=== PATIENT | male | born 1965 | race Caucasian/White ===

== ENCOUNTER → 2021-07-27 09:44 | Outpatient (BNVA) | payer BC, SELFPAY | PROVIDERS: PCP Physician Assistant Medical; Visit Provider Nurse Practitioner Family ==

== ENCOUNTER → 2022-06-18 10:40 | Outpatient (BNVA) | payer BC, MEDICARE, SELFPAY | PROVIDERS: PCP Physician Assistant Medical; Visit Provider Psychiatry & Neurology Neurology | DX: G43.119 Migraine with aura, intractable, without status migrainosus (principal) | CPT/HCPCS: 64615; J0585 ==

== ENCOUNTER → 2022-07-03 07:47 | Outpatient (BNVA) | payer BC, MEDICARE, SELFPAY | PROVIDERS: PCP Physician Assistant Medical; Visit Provider Nurse Practitioner Family | DX: Z13.89 Encounter for screening for other disorder (principal) ==

== ENCOUNTER → 2022-09-19 08:39 | Outpatient (BNVA) | payer BC, MEDICARE, SELFPAY | PROVIDERS: PCP Physician Assistant Medical; Visit Provider Psychiatry & Neurology Neurology | DX: G43.709 Chronic migraine without aura, not intractable, without status migrainosus (principal) | CPT/HCPCS: 64615; J0585 ==

== ENCOUNTER → 2022-10-22 07:53 | Outpatient (BNVA) | payer BC, MEDICARE, SELFPAY | PROVIDERS: PCP Physician Assistant Medical; Visit Provider Nurse Practitioner Family ==

== ENCOUNTER 2022-11-21 10:49 | Outpatient (RCR) | payer BC, MEDICARE, SELFPAY ==
[2022-11-21 10:55] VITALS: BP 128/82; PULSE 63; O2SAT 99
== END 2023-05-06 10:38 | disposition home or self-care (01) ==
LOC: HO.PTWFD 10:49
PROVIDERS: PCP Physician Assistant Medical; Visit Provider Nurse Practitioner Family
DX: R42 Dizziness and giddiness (principal)
CPT/HCPCS: 97161

== ENCOUNTER 2022-12-31 07:23 | Outpatient (AMB) | payer BC, MEDICARE, SELFPAY ==
--- NOTE | 2022-12-31 07:32 | MHC.OFFVIS ---
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 Required: No Allergies erenumab-aooe [From Aimovig Autoinjector] Allergy (Mild, Verified 12/31/22 07:32) Rash Medication List - Last Reconciled 12/31/22 by Melody Canas MD allopurinol 100 mg PO DAILY amitriptyline 75 mg (3 x 25 mg) PO BEDTIME 30 days cyclobenzaprine 10 mg (2 x 5 mg) PO BEDTIME PRN 30 days eletriptan (Relpax) take 1 tab at onset of headache; if no relief, may repeat 1 tab after at least 2 hrs; max = 2 tabs/24 hrs PO 30 days magnesium oxide 400 mg PO DAILY onabotulinumtoxinA (Botox) 200 units IM ONCE 12 weeks propranolol ER 120 mg PO DAILY 30 days rosuvastatin 5 mg PO BEDTIME sumatriptan succinate 100 mg PO Q2-4H PRN vitamin B comp and C no.3 (B Complex Plus Vitamin C) 1 cap PO DAILY HPI HPI Comments History of Present Illness Details ? 57y/o male comes for treatment of migraines with botox.He reports waking up with headaches He has jaw clenching, loud snoring and hypersomnia. He reports frequent arousals at night. ??? Most frequent reported adverse reactions following injection of botox for chronic migraine include neck pain (9%), headache(5%), eyelid ptosis(4%), migraine(4%), muscular weakness(4%), musculuskeletal stiffness(4%), bronchitis(3%), injection site pain (3%), musculoskeletal pain(3%), myalgia(3%), facial paresis(2%), HTN(2%) and muscle spasms(2%) were discussed in detail. ??? Botulinum toxin typeA 200units Lot no [id number] expiration [id number] was diluted with 4 cc of normal saline . ??? Muscles injected- ??? Frontalis 4 sites ? Temporalis- 8 sites ??? Occipitalis- 4 sites ??? Cervical paraspinals- 4 sites ??? Trapezius- 6 sites- 10 units each ??? 5 units each in 31 site Zygomaticus major dori 10 units each Massetters 20 units each ??? Total use- 200units ??? PFSH Medical History Snoring Family History Sister Cancer Social History Alcohol intake: current Alcohol intake frequency: a few times a week Patient Tobacco Use Status: Never used Tobacco Physical Exam Vital Signs: Last Vital Signs Pulse 59 12/31/22 07:34 BP 118/72 12/31/22 07:34 Pulse Ox 99 12/31/22 07:34 Oxygen Delivery Method Room Air 12/31/22 07:34 Const General: cooperative and no acute distress Orientation/consciousness: patient oriented x3 HEENT Head: Yes normocephalic Resp Effort & Inspection: normal respiratory effort and able to speak in complete sentences Neuro General: patient oriented x3, gait normal and CN's II-XI intact bilaterally Cognition (Neuro): normal cognition Motor exam (neuro): 5/5 motor strength present throughout Psych Appearance: grossly normal Mental Status: mental status grossly normal Speech and movement: Normal speech and movement present Affect: normal affect Attitude: cooperative Thought process: Normal thought process present Thought content: Normal thought content present Insight: Good insight present (Psych) Judgement: Good judgement present (Psych) Office Procedures Botulinum toxin Injection 84630 - Migraine Procedure code (CPT) selection complete Office Meds onabotulinumtoxinA Performing Provider: Melody Canas MD Administered by: Melody Canas MD on 12/31/22 07:57 Dose Route Admin Location Lot Number Expiration Date NDC Handle 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 Orders: Orders RT home sleep study Today F45.8 - Other somatoform disorders, G47.10 - Hypersomnia, unspecified, R06.83 - Snoring AMB Botulinum toxin Injection Today G43.709 - Chronic migraine without aura, not intractable, without status migrainosus Coding Level of Care Code Est Pt Level 1 (95935) Diagnoses Chronic migraine without aura G43.709 Bruxism F45.8 Snoring R06.83 CPT Codes Botox Injection - Botox 3: 02740 - Migraine ([id number])
[2022-12-31 07:34] VITALS: BP 118/72; PULSE 59; O2SAT 99
== END 2022-12-31 07:54 | disposition home or self-care (01) ==
PROVIDERS: Visit Provider Psychiatry & Neurology Neurology
DX: G43.709 Chronic migraine without aura, not intractable, without status migrainosus (principal)
CPT/HCPCS: 64615

== ENCOUNTER → 2022-12-31 07:23 | Outpatient (BNVA) | payer BC, MEDICARE, SELFPAY | PROVIDERS: Visit Provider Psychiatry & Neurology Neurology | DX: G43.709 Chronic migraine without aura, not intractable, without status migrainosus (principal); R06.83 Snoring; F45.8 Other somatoform disorders | CPT/HCPCS: 64615; 99211; J0585 ==

== ENCOUNTER → 2023-02-06 08:34 | Outpatient (REF) | payer BC, MEDICARE, SELFPAY | LOC: HO.SL 08:34 | PROVIDERS: PCP Physician Assistant Medical; Visit Provider Psychiatry & Neurology Neurology | DX: G47.33 Obstructive sleep apnea (adult) (pediatric) (principal); F45.8 Other somatoform disorders; R06.83 Snoring; G47.10 Hypersomnia, unspecified | CPT/HCPCS: 95806 ==

== ENCOUNTER → 2023-02-06 08:51 | Outpatient (BNV) | payer BC, MEDICARE, SELFPAY | PROVIDERS: PCP Physician Assistant Medical; Visit Provider Psychiatry & Neurology Neurology | DX: G47.33 Obstructive sleep apnea (adult) (pediatric) (principal) | CPT/HCPCS: 95806 ==

== ENCOUNTER 2023-04-24 07:48 | Outpatient (AMB) | payer BC, MEDICARE, SELFPAY ==
--- NOTE | 2023-04-24 07:52 | A.OFFVIS_ITS ---
Intake Vital Signs 04/24/23 07:53 Height 6 ft Weight 227 lb BMI 30.8 BP 118/82 Blood Pressure Location Rt brachial Position Sitting Pulse 66 Pulse Source Pulse Oximeter Pulse Oximetry (%) 98 Oxygen Delivery Method Room Air Intake Visit Reasons: 6 follow up headache-Conf Intake Note: Patient presents for 6 month follow up headaches. Allergies erenumab-aooe [From Aimovig Autoinjector] Allergy (Mild, Verified 04/24/23 07:55) Rash Medication List - Last Reconciled 04/24/23 by SARA Montalvo allopurinol 100 mg PO DAILY amitriptyline 75 mg (3 x 25 mg) PO BEDTIME 30 days cyclobenzaprine 10 mg (2 x 5 mg) PO BEDTIME PRN 30 days eletriptan (Relpax) take 1 tab at onset of headache; if no relief, may repeat 1 tab after at least 2 hrs; max = 2 tabs/24 hrs PO 30 days magnesium oxide 400 mg PO DAILY onabotulinumtoxinA (Botox) 200 units IM ONCE 12 weeks propranolol ER 120 mg PO DAILY 30 days rosuvastatin 5 mg PO BEDTIME sumatriptan succinate 100 mg PO Q2-4H PRN vitamin B comp and C no.3 (B Complex Plus Vitamin C) 1 cap PO DAILY HPI HPI Comments History of Present Illness Details 57-yr-old male presents for f/u visit. Pt denies any significant interval medical changes. Pt states he completed 3 courses of Botox- however did not find it very helpful. He did have less daytime headaches and more nocturnal headaches, however this was actually more bothersome as then he could not sleep at night. He continues to have 3 severe migraine days per week- which can last > 6 hrs. He does note some increased stress- has been having to help his parents more d/t their recent health issues. Eletriptan helps- not sure if any more effective than the other triptans. [facility] Medical History Snoring Family History Sister Cancer Social History Alcohol intake: current Alcohol intake frequency: a few times a week Patient Tobacco Use Status: Never used Tobacco Review of Systems Const All systems reviewed & are unremarkable except as noted in HPI and below Physical Exam Vital Signs: Last Vital Signs Pulse 66 04/24/23 07:53 BP 118/82 04/24/23 07:53 Pulse Ox 98 04/24/23 07:53 Oxygen Delivery Method Room Air 04/24/23 07:53 BMI result Body Mass Index 30.8 Const General: cooperative and no acute distress Orientation/consciousness: patient oriented x3 HEENT Head: Yes normocephalic Resp Effort & Inspection: normal respiratory effort and able to speak in complete sentences Neuro General: patient oriented x3, gait normal and CN's II-XI intact bilaterally Cognition (Neuro): normal cognition Motor exam (neuro): 5/5 motor strength present throughout Psych Appearance: grossly normal Mental Status: mental status grossly normal Speech and movement: Normal speech and movement present Affect: normal affect Attitude: cooperative Thought process: Normal thought process present Thought content: Normal thought content present Insight: Good insight present (Psych) Judgement: Good judgement present (Psych) Assessment & Plan Assessment & Plan (1) Migraine with aura, intractable, without status migrainosus: Code(s): G43.119 - Migraine with aura, intractable, without status migrainosus (2) Bruxism: Code(s): F45.8 - Other somatoform disorders (3) Chronic migraine without aura: Code(s): G43.709 - Chronic migraine without aura, not intractable, without status migrainosus Plan For migraine prevention tx: Hold Botox- pt did not see effect. Start Qulipta 30mg qhs. Continue amitriptyline 75 mg q.h.s. Continue propranolol LA 120 mg daily. Continue magnesium and riboflavin. Trial Nerivio neuromodulation device qod. Previous migraine prevention trials: topiramate, caused significant metallic oral sensation; Aimovig caused diffuse rash. Botox- ineffective after 3 tx's. For acute migraine tx: Continue sumatriptan 100 mg by mouth as needed. May alternate w/ Eletriptan 40mg prn- in hopes it is more effective than Sumatriptan. Continue Cyclobenzaprine 5-10mg qhs prn headache/bruxism. May use Benadryl 25-50mg prn for rescue/sleep Trial Nerivio neuromodulation device qd rpn. Previous migraine acute tx trials: Sumatriptan inj- lost efficacy. Future considerations- DHE/Trudhessa, metoclopramide- for rescue. f/u in 4 months or sooner prn. Medications: New atogepant (Qulipta) 30 mg PO DAILY 30 days 30 tabs 6RF Coding Level of Care Code Est Pt Level 4 (03783) Diagnoses Migraine with aura, intractable, without status migrainosus G43.119 Bruxism F45.8 Chronic migraine without aura G43.709
[2023-04-24 07:53] VITALS: BP 118/82; PULSE 66; O2SAT 98; BMI 30.8
== END 2023-04-24 08:40 | disposition home or self-care (01) ==
PROVIDERS: PCP Physician Assistant Medical; Visit Provider Nurse Practitioner Family
DX: G43.119 Migraine with aura, intractable, without status migrainosus (principal); F45.8 Other somatoform disorders; G43.709 Chronic migraine without aura, not intractable, without status migrainosus
CPT/HCPCS: 99214

== ENCOUNTER → 2023-04-24 07:48 | Outpatient (BNVA) | payer BC, MEDICARE, SELFPAY | PROVIDERS: PCP Physician Assistant Medical; Visit Provider Nurse Practitioner Family | DX: G43.709 Chronic migraine without aura, not intractable, without status migrainosus (principal) ==

== ENCOUNTER 2023-08-20 07:53 | Outpatient (AMB) | payer BC, MEDICARE, SELFPAY ==
[2023-08-20 07:58] VITALS: BP 114/74; PULSE 72; O2SAT 98; BMI 30.8
--- NOTE | 2023-08-20 07:58 | A.OFFVIS_ITS ---
Intake Vital Signs 08/20/23 07:58 Height 6 ft Weight 227 lb BMI 30.8 BP 114/74 Blood Pressure Location Rt brachial Position Sitting Pulse 72 Pulse Source Pulse Oximeter Pulse Oximetry (%) 98 Oxygen Delivery Method Room Air Intake Visit Reasons: 4 mnts f/u appt-CONF Intake Note: Patiient presents for 4 month follow up. Allergies erenumab-aooe [From Aimovig Autoinjector] Allergy (Mild, Verified 08/20/23 08:00) Rash Medication List - Last Reconciled 08/20/23 by SARA Montalvo allopurinol 100 mg PO DAILY amitriptyline 75 mg (3 x 25 mg) PO BEDTIME 30 days atogepant (Qulipta) 30 mg PO DAILY 30 days cyclobenzaprine 10 mg (2 x 5 mg) PO BEDTIME PRN 30 days eletriptan (Relpax) take 1 tab at onset of headache; if no relief, may repeat 1 tab after at least 2 hrs; max = 2 tabs/24 hrs PO 30 days magnesium oxide 400 mg PO DAILY onabotulinumtoxinA (Botox) 200 units IM ONCE 12 weeks propranolol ER 120 mg PO DAILY 30 days rosuvastatin 5 mg PO BEDTIME sumatriptan succinate 100 mg PO Q2-4H PRN vitamin B comp and C no.3 (B Complex Plus Vitamin C) 1 cap PO DAILY HPI HPI Comments History of Present Illness Details 58-yr-old male presents for f/u visit. Pt denies any significant interval medical changes. Pt did not tolerate Atogepant 30mg qd- caused significant GI s/s- even with taking in am or at bedtime. He did hold Amitriptyline while taking it. He finds the Eletriptan to be helping better. He is still having 3-4 migraine attacks per week. The Eletriptan does help them to end sooner- now needs 1-1.5hrs in a dark quiet. He wonders if there is something he can do to prevent migraine induced by airtravel. [facility] Medical History (Updated 08/20/23 @ 09:22 by SARA Montalvo) Migraine with aura, intractable, without status migrainosus Snoring Family History Sister Cancer Social History Alcohol intake: current Alcohol intake frequency: a few times a week Patient Tobacco Use Status: Never used Tobacco Physical Exam Vital Signs: Last Vital Signs Pulse 72 08/20/23 07:58 BP 114/74 08/20/23 07:58 Pulse Ox 98 08/20/23 07:58 Oxygen Delivery Method Room Air 08/20/23 07:58 BMI result Body Mass Index 30.8 Const General: cooperative and no acute distress Orientation/consciousness: patient oriented x3 Resp Effort & Inspection: normal respiratory effort and able to speak in complete sentences Neuro General: patient oriented x3 Cranial nerves: Yes CN's II-XII intact bilaterally Cognition (Neuro): normal cognition Psych Appearance: grossly normal Mental Status: mental status grossly normal Speech and movement: Normal speech and movement present Affect: normal affect Attitude: cooperative Assessment & Plan Assessment & Plan (1) Chronic migraine without aura: Code(s): G43.709 - Chronic migraine without aura, not intractable, without status migrainosus (2) Migraine with aura: Code(s): G43.109 - Migraine with aura, not intractable, without status migrainosus (3) Bruxism: Code(s): F45.8 - Other somatoform disorders Plan For migraine prevention tx: Pt stopped Qulipta 30mg qhs- caused significant GI s/s. Increase amitriptyline from 75 to 100 mg q.h.s. Continue propranolol LA 120 mg daily. Continue magnesium and riboflavin. Trial Nerivio neuromodulation device qod. Previous migraine prevention trials: topiramate, caused significant metallic oral sensation; Aimovig caused diffuse rash. Botox- ineffective after 3 tx's. Qulipta 30mg qhs- caused significant GI s/s. For migraine induced by air travel: Trial Acetazolamide 125mg bid starting 1 day before flight and continuing x's 1- 2 days after flight. For acute migraine tx: Continue sumatriptan 100 mg by mouth as needed. Continue Eletriptan 40mg prn.. Continue Cyclobenzaprine 5-10mg qhs prn headache/bruxism. May use Benadryl 25-50mg prn for rescue/sleep Trial Nerivio neuromodulation device qd rpn. Previous migraine acute tx trials: Sumatriptan inj- lost efficacy. Future considerations- DHE/Trudhessa, metoclopramide- for rescue. f/u in 4 months or sooner prn. Medications: New acetazolamide start 24 hrs prior to flying 125 mg PO BID 14 days PRN 28 tabs 0RF altitude sickness amitriptyline 100 mg PO BEDTIME 30 days 30 tabs 3RF Refilled eletriptan (Relpax) take 1 tab at onset of headache; if no relief, may repeat 1 tab after at least 2 hrs; max = 2 tabs/24 hrs PO 30 days 14 tabs 6RF Discontinued amitriptyline Discontinued Reason: Doctor's Order 75 mg (3 x 25 mg) PO BEDTIME 30 days 90 tabs 6RF atogepant (Qulipta) Discontinued Reason: Doctor's Order 30 mg PO DAILY 30 days 30 tabs 6RF Coding Level of Care Code Est Pt Level 4 (58843) Diagnoses Chronic migraine without aura G43.709 Migraine with aura G43.109 Bruxism F45.8
== END 2023-08-20 08:52 | disposition home or self-care (01) ==
PROVIDERS: PCP Physician Assistant Medical; Visit Provider Nurse Practitioner Family
DX: G43.709 Chronic migraine without aura, not intractable, without status migrainosus (principal); G43.109 Migraine with aura, not intractable, without status migrainosus; F45.8 Other somatoform disorders
CPT/HCPCS: 99214

== ENCOUNTER → 2023-08-20 07:53 | Outpatient (BNVA) | payer BC, MEDICARE, SELFPAY | PROVIDERS: PCP Physician Assistant Medical; Visit Provider Nurse Practitioner Family ==

== ENCOUNTER 2024-01-30 07:53 | Outpatient (AMB) | payer BC, MEDICARE, SELFPAY ==
[2024-01-30 07:57] VITALS: BP 122/78; PULSE 68; O2SAT 100; BMI 30.2
--- NOTE | 2024-01-30 07:57 | MHC.OFFVIS ---
Vital Signs 01/30/24 07:57 Height 6 ft Weight 223 lb BMI 30.2 BP 122/78 Blood Pressure Location Rt brachial Pulse 68 Pulse Source Pulse Oximeter Pulse Oximetry (%) 100 Oxygen Delivery Method Room Air Intake Visit Reasons: Follow up Intake Note: Patient presents for follow up Allergies erenumab-aooe [From Aimovig Autoinjector] Allergy (Mild, Verified 01/30/24 08:05) Rash Medication List - Last Reconciled 01/30/24 by SARA Montalvo acetazolamide 125 mg PO BID PRN 14 days allopurinol 100 mg PO DAILY amitriptyline 100 mg PO BEDTIME 30 days cyclobenzaprine 10 mg (2 x 5 mg) PO BEDTIME PRN 30 days eletriptan (Relpax) take 1 tab at onset of headache; if no relief, may repeat 1 tab after at least 2 hrs; max = 2 tabs/24 hrs PO 30 days magnesium oxide 400 mg PO DAILY onabotulinumtoxinA (Botox) 200 units IM ONCE 12 weeks propranolol ER 120 mg PO DAILY 30 days rosuvastatin 5 mg PO BEDTIME sumatriptan succinate 100 mg PO Q2-4H PRN vitamin B comp and C no.3 (B Complex Plus Vitamin C) 1 cap PO DAILY HPI Comments Details: 58-yr-old male presents for f/u visit. Pt denies any significant interval medical changes. Pt reports he is better able to catch a migraine, now recognizes that he has a scratchy inner skull sensation. He is still having 3 migraine days per week. Usually starts taking Ibuprofen at onset, as he can run out of his eletriptan before the end of the month as he is only receiving 9 tabs per month. He is still photophobic. The acetazolamide was helpful to prevent post-flight migraine attack. [facility] Medical History (Updated 01/30/24 @ 13:39 by SARA Montalvo) Migraine with aura, intractable, without status migrainosus Snoring Family History Sister Cancer Social History Alcohol intake: current Alcohol intake frequency: a few times a week Patient Tobacco Use Status: Never used Tobacco Physical Exam Vital Signs: Last Vital Signs Pulse 68 01/30/24 07:57 BP 122/78 01/30/24 07:57 Pulse Ox 100 01/30/24 07:57 Oxygen Delivery Method Room Air 01/30/24 07:57 BMI result Body Mass Index 30.2 Const General: cooperative and no acute distress Orientation/consciousness: patient oriented x3 Resp Effort & Inspection: normal respiratory effort and able to speak in complete sentences Neuro General: patient oriented x3 Cranial nerves: Yes CN's II-XII intact bilaterally Cognition (Neuro): normal cognition Psych Appearance: grossly normal Mental Status: mental status grossly normal Speech and movement: Normal speech and movement present Affect: normal affect Attitude: cooperative Assessment & Plan Assessment & Plan (1) Migraine with aura: Code(s): G43.109 - Migraine with aura, not intractable, without status migrainosus Category: Medical (2) Photophobia: Code(s): H53.149 - Visual discomfort, unspecified Category: Medical Plan For migraine prevention tx: Continue amitriptyline 100 mg q.h.s. Continue propranolol LA 120 mg daily. Continue magnesium and riboflavin. Previous migraine prevention trials: topiramate, caused significant metallic oral sensation; Aimovig caused diffuse rash. Botox- ineffective after 3 tx's. Qulipta 30mg qhs- caused significant GI s/s. ? For migraine induced by air travel: Acetazolamide 125mg bid starting 1 day before flight and continuing x's 1-2 days after flight. ? For acute migraine tx: Continue sumatriptan 100 mg by mouth as needed. Continue Eletriptan 40mg prn. will send additional order to [facility] pharmacy to supplement 9 tabs per month to 14 tabs per month. Continue Cyclobenzaprine 5-10mg qhs prn headache/bruxism. May use Benadryl 25-50mg prn for rescue/sleep Previous migraine acute tx trials: Sumatriptan inj- lost efficacy. Future considerations- DHE/Trudhessa, metoclopramide- for rescue. Information shared on non-pharmacological migraine tx's, such as migraine specifc blue light filtering glasses. ? f/u in 6 months or sooner prn. Medications: Refilled eletriptan (Relpax) take 1 tab at onset of headache; if no relief, may repeat 1 tab after at least 2 hrs; max = 2 tabs/24 hrs PO 30 days 30 tabs 6RF G43.109 - Migraine with aura, not intractable, without status migrainosus Coding Level of Care Code Est Pt Level 4 (35620) Diagnoses Migraine with aura G43.109 Photophobia H53.149
== END 2024-01-30 09:04 | disposition home or self-care (01) ==
PROVIDERS: PCP Physician Assistant Medical; Visit Provider Nurse Practitioner Family
DX: G43.109 Migraine with aura, not intractable, without status migrainosus (principal); H53.149 Visual discomfort, unspecified
CPT/HCPCS: 99214

== ENCOUNTER → 2024-01-30 07:53 | Outpatient (BNVA) | payer BC, MEDICARE, SELFPAY | PROVIDERS: PCP Physician Assistant Medical; Visit Provider Nurse Practitioner Family ==

== ENCOUNTER 2024-08-12 08:51 | Outpatient (AMB) | payer BC, MEDICARE, SELFPAY ==
--- NOTE | 2024-08-12 08:59 | MHC.OFFVIS ---
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: No Accompanied by: Self / Same As Patient Allergies erenumab-aooe [From Aimovig Autoinjector] Allergy (Mild, Verified 08/12/24 09:07) Rash Medication List - Last Reconciled 08/12/24 by SARA Montalvo acetazolamide 125 mg PO BID PRN 14 days allopurinol 100 mg PO DAILY amitriptyline 100 mg PO BEDTIME 30 days cyclobenzaprine 10 mg (2 x 5 mg) PO BEDTIME PRN 30 days eletriptan (Relpax) take 1 tab at onset of headache; if no relief, may repeat 1 tab after at least 2 hrs; max = 2 tabs/24 hrs PO 30 days magnesium oxide 400 mg PO DAILY onabotulinumtoxinA (Botox) 200 units IM ONCE 12 weeks propranolol ER 120 mg PO DAILY 30 days rosuvastatin 5 mg PO BEDTIME sumatriptan succinate 100 mg PO Q2-4H PRN vitamin B comp and C no.3 (B Complex Plus Vitamin C) 1 cap PO DAILY HPI Comments Details: 59-yr-old male presents for f/u visit for chronic migraine. Pt denies any significant interval medical changes. Last month had a bout of vertigo- room spinning to the left. Used meclizine last month for vertigo, which helped. Previously did vestibular PT. Pt reports he is better able to catch a migraine, now recognizes that he has a scratchy inner skull sensation. He is still having 3 migraine days per week- none lasting longer than 3 hours. He is now using Eletriptan at onset of migraine, as he is receiving sufficient supply through [facility] pharmacy. Also using the HEAeyes which is very helpful. He finds that applying ice to deep inner buccal region is also helpful. He is still photophobic. The acetazolamide is helpful to prevent post-flight migraine attack. [facility] Medical History (Updated 01/30/24 @ 13:39 by SARA Montalvo) Migraine with aura, intractable, without status migrainosus Snoring Family History Sister Cancer Social History Alcohol intake: current Alcohol intake frequency: a few times a week Patient Tobacco Use Status: Never used Tobacco Physical Exam Vital Signs: Last Vital Signs Pulse 56 08/12/24 09:05 BP 122/78 08/12/24 09:05 Pulse Ox 97 08/12/24 09:05 Oxygen Delivery Method Room Air 08/12/24 09:05 BMI result Body Mass Index 29.8 Const General: cooperative and no acute distress Orientation/consciousness: patient oriented x3 Resp Effort & Inspection: normal respiratory effort and able to speak in complete sentences Neuro General: patient oriented x3 Cranial nerves: Yes CN's II-XII intact bilaterally Cognition (Neuro): normal cognition Psych Appearance: grossly normal Mental Status: mental status grossly normal Speech and movement: Normal speech and movement present Affect: normal affect Attitude: cooperative Assessment & Plan Assessment & Plan (1) Migraine with aura: Code(s): G43.109 - Migraine with aura, not intractable, without status migrainosus Category: Medical (2) Photophobia: Code(s): H53.149 - Visual discomfort, unspecified Category: Medical (3) Vertigo: Code(s): R42 - Dizziness and giddiness Category: Medical Plan For migraine prevention tx: Continue amitriptyline 100 mg q.h.s. Continue propranolol LA 120 mg daily. Continue magnesium and riboflavin. Previous migraine prevention trials: topiramate, caused significant metallic oral sensation; Aimovig caused diffuse rash. Botox- ineffective after 3 tx's. Qulipta 30mg qhs- caused significant GI s/s. ? For migraine induced by air travel: Acetazolamide 125mg bid starting 1 day before flight and continuing x's 1-2 days after flight. ? For acute migraine tx: Continue Eletriptan 40mg prn. continue to send additional orders to [facility] pharmacy to supplement 9 tabs per month (allowed by his insurance) to 14 tabs per month. Hold Cyclobenzaprine 5-10mg qhs prn headache/bruxism- no longer using. May use Benadryl 25-50mg prn for rescue/sleep May continue HEAeye device prn. Previous migraine acute tx trials: Sumatriptan inj- lost efficacy. Sumatriptan 100mg- not as effective as eletriptan. Future considerations- DHE/Trudhessa, metoclopramide- for rescue. For vertigo: Meclizine 12.5mg prn. If worsens, will refer back to vestibular PT. ? f/u in 6 months or sooner prn. Medications: New meclizine 12.5 mg PO BID-TID PRN Refilled amitriptyline 100 mg PO BEDTIME 30 tabs 6RF 30 days propranolol ER 120 mg PO DAILY 30 caps 6RF 30 days eletriptan (Relpax) take 1 tab at onset of headache; if no relief, may repeat 1 tab after at least 2 hrs; max = 2 tabs/24 hrs PO 30 tabs 6RF 30 days G43.109 - Migraine with aura, not intractable, without status migrainosus acetazolamide start 24 hrs prior to flying 125 mg PO BID PRN 28 tabs 0RF altitude sickness 14 days Discontinued sumatriptan succinate Discontinued Reason: Doctor's Order 100 mg PO Q2-4H PRN 30 tabs 3RF migraine headache cyclobenzaprine Discontinued Reason: Doctor's Order 10 mg (2 x 5 mg) PO BEDTIME 30 days PRN 60 tabs 2RF muscle spasm Coding Level of Care Code Est Pt Level 4 (93934) Diagnoses Migraine with aura G43.109 Photophobia H53.149 Vertigo R42
[2024-08-12 09:05] VITALS: BP 122/78; PULSE 56; O2SAT 97; BMI 29.8
--- OUTSIDE RECORDS SUMMARY | 2024-08-12 09:45 | XMS_ITS | Data Portability ---
Author Organization 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 Plan of Treatment Reminders Order Date Submit Date Provider Last Modified By Organization Details Last Modified Time Details Appointments None record ed. Lab uric acid, serum or plasma 2023 DIANNE [facility], [address], [address], [place], [id number], 15:43:53 CMP, serum or plasma 2023 DIANNE [facility], [address], [address], [place], [address], 15:43:49 CBC w/ auto diff 2023 DIANNE [facility] (Centralized Electronic Ordering - All Locations), Patient Can Go To The Location Of Their Choice, [id number] 15:43:48 lipid panel, serum 2023 DIANNE [facility] (Centralized Electronic Ordering - All Locations), Patient Can Go To The Location Of Their Choice, [id number] 15:43:50 HbA1c (hemog lobin A1c), blood 2023 DIANNE [facility], [address], [address], [place], [address], 4 15:43:51 PSA, serum or plasma - Screen ing 2023 024 DIANNE [facility], [address], [address], [place], [address], 4 15:43:50 uric acid, serum or plasma 2022 023 DIANNE [facility], [address], [address], [place], [address], 3 14:08:00 gamma- glutam yl transf erase (ggt), serum 2022 023 DIANNE [facility], [address], [address], [place], [address], 3 14:07:58 CMP, serum or plasma 2022 023 DIANNE [facility], [address], [address], [place], [address], 3 14:07:56 HbA1c (hemog lobin A1c), blood 2022 023 DIANNE [facility], [address], [address], [place], [address], 3 14:47:22 PSA, serum or plasma - Screen ing 2022 023 DIANNE [facility], [address], [address], [place], [address], 3 14:36:04 uric acid, serum or plasma 2022 023 DIANNE [facility], [address], [address], [place], [address], 3 17:35:56 hepati c functi on panel, serum 2022 023 DIANNE [facility], [address], [address], [place], [address], 17:35:53 gamma- glutam yl transf erase (ggt), serum 2022 023 DIANNE [facility], [address], [address], [place], [address], 17:35:52 uric acid, serum or plasma 2021 022 DIANNE [facility], [address], [address], [place], [address], 20:23:32 lipid panel, serum 2021 022 DIANNE [facility], [address], [address], [place], [address], 20:23:31 CMP, serum or plasma 2021 022 DIAN[facility], [address], [address], [place], [address], 2 20:23:30 CBC w/ auto diff 2021 022 DIAN[facility], [address], [address], [place], [address], 2 18:27:19 HbA1c (hemog lobin A1c), blood 2021 022 DIANNE [facility], [address], [address], [place], [address], 2 21:05:01 vitami n D, 25-hyd maria g, total, serum 2021 022 DIANNE [facility], [address], [address], [place], [address], 2 20:43:50 PSA, serum or plasma - Screen ing 2021 022 DIANNE [facility], [address], [address], [place], [address], 2 20:43:49 uric acid, serum or plasma 2020 021 [email or web address] [facility], [address], [address], [place], [address], 1 15:30:21 BMP, serum or plasma 2020 021 [email or web address] [facility], [address], [address], [place], [address], 1 16:40:12 Referral nutrit ionist /shawn gillespie referr al 2023 024 [email or web address] Not available 4 14:57:54 nutrit ionist /shawn gillespie referr al 2022 023 chinedu Not available 3 18:19:51 Procedures None record ed. Surgeries None record ed. Imaging None record ed. Medication Orders indome thacin 50 mg capsul e 2020 021 chinedu [id number], [address] [place], [address], 2 10:22:37 Patient Targets Encounter Date Encounter Id Patient Goals Patient Target Last Modified By Organization Details Last Modified Time 03/07/2022 [id number] long-term goal of Excess Body Weight Loss % 5 Not available Not available Not available Ongoing of LDL Direct yearly Not available Not available Not available Ongoing of LDL Direct <100 Not available Not available Not available Pt agrees to follow low fat diet, avoid saturated fats , decrease carbohydrate intake to 45 - 50 gm per meal , pt agrees to develop a regular pattern of exercise such as walking 30 minutes a day 3 times a week, Pt will keep a record of exercise and activity level Patient preferences and goals incorporated in plan and updated/modified as needed to reflect progress toward goal.Pt advised and agrees to work on self-monitoring behaviors; begin an appropriate diet for weight loss (such as a low carbohydrate diet), to do moderate exercise (such as walking) for approximately 150 minutes per week; and to identify desirable and timely rewards that will reinforce achievement of specific weight loss goals. 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 pmadden Not available 03/10/2023 09:28:19 03/15/2024 [id number] long-term goal of Excess Body Weight Loss % 5 Not available Not available Not available Ongoing of LDL Direct <100 Not available Not available Not available Ongoing of LDL Direct yearly Not available Not available Not available Pt agrees to follow low fat diet, avoid saturated fats , decrease carbohydrate intake to 45 - 50 gm per meal , pt agrees to develop a regular pattern of exercise such as walking 30 minutes a day 3 times a week, Pt will keep a record of exercise and activity level Patient preferences and goals incorporated in plan and updated/modified as needed to reflect progress toward goal.Pt advised and agrees to work on self-monitoring behaviors; begin an appropriate diet for weight loss (such as a low carbohydrate diet), to do moderate exercise (such as walking) for approximately 150 minutes per week; and to identify desirable and timely rewards that will reinforce achievement of specific weight loss goals. pmadden Not available 03/15/2024 10:36:34 Patient Instructions Encounter Date Encounter Id Patient Instructions Last Modified By Organization Details Last Modified Time 10/04/2020 [id number] purine-restricte d diet: care instructions Not available 10/04/2020 16:10:40 gout: care instructions Not available 10/04/2020 16:10:40 03/07/2022 [id number] A healthy lifestyle: care instructions pmadden Not available 03/07/2022 11:36:49 Well Visit 50 to 65: Care Instructions pmadden Not available 03/07/2022 11:36:49 Prostate Cancer Screening pmadden Not available 03/07/2022 11:36:49 starting a weigh t loss plan: care instructions pmadden Not available 03/07/2022 11:36:49 Medications (OTC , herbal therapies, supplements) reviewed and reconciled with patient and or caregiver, including potential side effects, drug interactions, instructions, and the consequences of not taking medication. Reviewed potential barriers to medication adherence, such as side effects from medication or cost of medication. pmadden Not available 03/07/2022 11:35:21 09/16/2022 [id number] Medications (OTC , herbal therapies, supplements) reviewed and reconciled with patient and or caregiver, including potential side effects, drug interactions, instructions, and the consequences of not taking medication. Reviewed potential barriers to medication adherence, such as side effects from medication or cost of medication. pmadden Not available 09/16/2022 13:56:12 03/10/2023 [id number] A healthy lifestyle: care instructions pmadden Not available 03/10/2023 09:29:36 Well Visit 50 to 65: Care Instructions pmadden Not available 03/10/2023 09:29:36 Prostate Cancer Screening pmadden Not available 03/10/2023 09:29:36 starting a weigh t loss plan: care instructions pmadden Not available 03/10/2023 09:29:36 Medications (OTC , herbal therapies, supplements) reviewed and reconciled with patient and or caregiver, including potential side effects, drug interactions, instructions, and the consequences of not taking medication. Reviewed potential barriers to medication adherence, such as side effects from medication or cost of medication. pmadden Not available 03/10/2023 09:13:53 03/15/2024 [id number] A healthy lifestyle: care instructions pmadden Not available 03/15/2024 10:37:04 Well Visit 50 to 65: Care Instructions pmadden Not available 03/15/2024 10:37:04 Prostate Cancer Screening pmadden Not available 03/15/2024 10:37:05 starting a weigh t loss plan: care instructions pmadden Not available 03/15/2024 10:37:04 Medications (OTC , herbal therapies, supplements) reviewed and reconciled with patient and or caregiver, including potential side effects, drug interactions, instructions, and the consequences of not taking medication. Reviewed potential barriers to medication adherence, such as side effects from medication or cost of medication. 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 Refer ral for Body mass index 30+ - obesity Referring Physician: Rachna Olivera, Internal Medicine, Encounter Date: 03/15/2024 Results Created Date Observation Date Name Description Value Unit Range Abnormal Flag Note LastModifiedBy Organization Detail LastModifiedTime 03/07/2003/07/2022 COMPL ETE BLOOD COUNT WBC 7.3 K/mm3 (4.0-1 1.0) Not Available [facility] (Centralized Electronic Ordering - All Locations) Patient Can Go To The Location Of Their Choice, 03/07/2022 18:27:19 03/07/2003/07/2022 COMPL ETE BLOOD COUNT RBC 5.06 M/mm3 (4.70- 6.10) Not Available [facility] (Centralized Electronic Ordering - All Locations) Patient Can Go To The Location Of Their Choice, 03/07/2022 18:27:19 03/07/2003/07/2022 COMPL ETE BLOOD COUNT HGB 15.1 gm/dL (13.7- 17.1) Not Available [facility] (Centralized Electronic Ordering - All Locations) Patient Can Go To The Location Of Their Choice, 03/07/2022 18:27:19 03/07/2003/07/2022 COMPL ETE BLOOD COUNT HCT 45.6 % (40.5- 50.0) Not Available [facility] (Centralized Electronic Ordering - All Locations) Patient Can Go To The Location Of Their Choice, 03/07/2022 18:27:19 03/07/2003/07/2022 COMPL ETE BLOOD COUNT MCV 90.1 fL (80.0- 94.0) Not Available [facility] (Centralized Electronic Ordering - All Locations) Patient Can Go To The Location Of Their Choice, 03/07/2022 18:27:19 03/07/2003/07/2022 COMPL ETE BLOOD COUNT MCH 29.8 pg (27.0- 34.0) Not Available [facility] (Centralized Electronic Ordering - All Locations) Patient Can Go To The Location Of Their Choice, 03/07/2022 18:27:19 03/07/2003/07/2022 COMPL ETE BLOOD COUNT MCHC 33.1 g/dL (33.0- 37.0) Not Available [facility] (Centralized Electronic Ordering - All Locations) Patient Can Go To The Location Of Their Choice, 03/07/2022 18:27:19 03/07/2003/07/2022 COMPL ETE BLOOD COUNT plt 210 K/mm3 (150-4 60) Not Available [facility] (Centralized Electronic Ordering - All Locations) Patient Can Go To The Location Of Their Choice, 03/07/2022 18:27:19 03/07/2003/07/2022 COMPL ETE BLOOD COUNT RDW-SD 43.8 fL (<47.0 ) Not Available [facility] (Centralized Electronic Ordering - All Locations) Patient Can Go To The Location Of Their Choice, 03/07/2022 18:27:19 03/07/2003/07/2022 COMPL ETE BLOOD COUNT MPV 10.7 fL (9.4-1 2.4) Not Available [facility] (Centralized Electronic Ordering - All Locations) Patient Can Go To The Location Of Their Choice, 03/07/2022 18:27:19 03/07/2003/07/2022 COMPL ETE BLOOD COUNT automated NRBC 0.0 #/100 _WBC' s Not Available [facility] (Centralized Electronic Ordering - All Locations) Patient Can Go To The Location Of Their Choice, 03/07/2022 18:27:19 03/07/2003/07/2022 COMPL ETE BLOOD COUNT abs. NRBC 0.0 K/mm3 Not Available [facility] (Centralized Electronic Ordering - All Locations) Patient Can Go To The Location Of Their Choice, 03/07/2022 18:27:19 03/07/2003/07/2022 COMPR EHENS LAURIE METAB OLIC PANL glucose 107 mg/dL (70-99 ) high Not Available [facility] (Centralized Electronic Ordering - All Locations) Patient Can Go To The Location Of Their Choice, 03/07/2022 20:23:30 03/07/2003/07/2022 COMPR EHENS LAURIE METAB OLIC PANL BUN 13 mg/dL (6-20) Not Available [facility] (Centralized Electronic Ordering - All Locations) Patient Can Go To The Location Of Their Choice, 03/07/2022 20:23:30 03/07/2003/07/2022 COMPR EHENS LAURIE METAB OLIC PANL creatinine 1.1 mg/dL (0.7-1 .2) Not Available [facility] (Centralized Electronic Ordering - All Locations) Patient Can Go To The Location Of Their Choice, 03/07/2022 20:23:30 03/07/2003/07/2022 COMPR EHENS LAURIE METAB OLIC PANL sodium 139 mmol/ L (133-1 45) Not Available [facility] (Centralized Electronic Ordering - All Locations) Patient Can Go To The Location Of Their Choice, 03/07/2022 20:23:30 03/07/2003/07/2022 COMPR EHENS LAURIE METAB OLIC PANL potassium 4.6 mmol/ L (3.6-5 .2) Not Available [facility] (Centralized Electronic Ordering - All Locations) Patient Can Go To The Location Of Their Choice, 03/07/2022 20:23:30 03/07/2003/07/2022 COMPR EHENS LAURIE METAB OLIC PANL chloride 100 mmol/ L (98-10 7) Not Available [facility] (Centralized Electronic Ordering - All Locations) Patient Can Go To The Location Of Their Choice, 03/07/2022 20:23:30 03/07/2003/07/2022 COMPR EHENS LAURIE METAB OLIC PANL bicarbonate 28 mmol/ L (22-29 ) Not Available [facility] (Centralized Electronic Ordering - All Locations) Patient Can Go To The Location Of Their Choice, 03/07/2022 20:23:30 03/07/2003/07/2022 COMPR EHENS LAURIE METAB OLIC PANL anion gap 11 (4-17) Not Available [facility] (Centralized Electronic Ordering - All Locations) Patient Can Go To The Location Of Their Choice, 03/07/2022 20:23:30 03/07/2003/07/2022 COMPR EHENS LAURIE METAB OLIC PANL albumin 5.0 gm/dL (3.4-4 .8) high Not Available [facility] (Centralized Electronic Ordering - All Locations) Patient Can Go To The Location Of Their Choice, 03/07/2022 20:23:30 03/07/2003/07/2022 COMPR EHENS LAURIE METAB OLIC PANL calcium 9.9 mg/dL (8.6-1 0.5) Not Available [facility] (Centralized Electronic Ordering - All Locations) Patient Can Go To The Location Of Their Choice, 03/07/2022 20:23:30 03/07/2003/07/2022 COMPR EHENS LAURIE METAB OLIC PANL bilirubin,to haroldo 2.8 mg/dL (0-1.2 ) high Not Available [facility] (Centralized Electronic Ordering - All Locations) Patient Can Go To The Location Of Their Choice, 03/07/2022 20:23:30 03/07/20 22 03/07/2022 COMPR EHENS LAURIE METAB OLIC PANL total protein 7.3 gm/dL (6.2-8 .2) Not Available [facility] (Centralized Electronic Ordering - All Locations) Patient Can Go To The Location Of Their Choice, 03/07/2022 20:23:30 03/07/2003/07/2022 COMPR EHENS LAURIE METAB OLIC PANL Ag ratio 2.2 Not Available [facility] (Centralized Electronic Ordering - All Locations) Patient Can Go To The Location Of Their Choice, 03/07/2022 20:23:30 03/07/2003/07/2022 COMPR EHENS LAURIE METAB OLIC PANL AST 47 U/L (0-40) high Not Available [facility] (Centralized Electronic Ordering - All Locations) Patient Can Go To The Location Of Their Choice, 03/07/2022 20:23:30 03/07/20 22 03/07/2022 COMPR EHENS LAURIE METAB OLIC PANL alk phos 72 U/L (40-12 9) Not Available [facility] (Centralized Electronic Ordering - All Locations) Patient Can Go To The Location Of Their Choice, 03/07/2022 20:23:30 03/07/2003/07/2022 COMPR EHENS LAURIE METAB OLIC PANL ALT 109 U/L (0-41) high Not Available [facility] (Centralized Electronic Ordering - All Locations) Patient Can Go To The Location Of Their Choice, 03/07/2022 20:23:30 03/07/2003/07/2022 COMPR EHENS LAURIE METAB OLIC PANL estimated GFR creatinine 78 mL/mi n/1.7 3_M2 Creat inine based estim ated glome rular filtr ation (eGFR ) in adult s is calcu lated using the Natio nal Kidne y Found ation recom karen d 2020 CKD-E PI equat ion. Estim ates GFR from serum creat inine , age and sex. Not Available [facility] (Centralized Electronic Ordering - All Locations) Patient Can Go To The Location Of Their Choice, 03/07/2022 20:23:30 03/07/2003/07/2022 LIPID PANEL cholesterol, total 252 mg/dL (<200) high Not Available [facility] ([facility] - All Locations) Patient Can Go To The Location Of Their Choice, 03/07/2022 20:23:31 03/07/2003/07/2022 LIPID PANEL triglyceride 235 mg/dL (<150) high Not Available [facility] Locations) Patient Can Go To The Location Of Their Choice, 03/07/2022 20:23:31 03/07/2003/07/2022 LIPID PANEL HDL chol 35 mg/dL (>39) low Not Available [facility] (Centralized Electronic Ordering - All Locations) Patient Can Go To The Location Of Their Choice, 03/07/2022 20:23:31 03/07/2003/07/2022 LIPID PANEL LDL cholesterol, calculated 170 mg/dL (0-130 ) high Not Available [facility] (Centralized Electronic Ordering - All Locations) Patient Can Go To The Location Of Their Choice, 03/07/2022 20:23:31 03/07/2003/07/2022 LIPID PANEL non HDL cholesterol (calc) 217 mg/dL (<160) high Not Available [facility] ([facility] Order[facility] - All Locations) Patient Can Go To The Location Of Their Choice, 03/07/2022 20:23:31 03/07/2003/07/2022 URIC ACID uric acid 8.2 mg/dL (2.6-8 .7) Not Available [facility] (Centralized Electronic Ordering - All Locations) Patient Can Go To The Location Of Their Choice, 03/07/2022 20:23:32 03/07/2003/07/2022 PSA SCREE N PSA 0.6 NG/mL (0-4) TEST PERFO RMED USING THE 1[employer] ELECT Riptide IOU [employer] CENCE TOTAL PSA ASSAY . PSA VALUE S OBTAI SYLVIA WITH OTHER ASSAY METHO DS OR KITS CANNO T BE USED INTER ENRIQUEZ EABLY . Not Available [facility] (Centralized Electronic Ordering - All Locations) Patient Can Go To The Location Of Their Choice, 03/07/2022 20:43:49 03/07/2003/07/2022 25OH VITAM IN D 25OH vitamin D 31.0 NG/mL (20-50 ) Not Available [facility] (Centralized Electronic Ordering - All Locations) Patient Can Go To The Location Of Their Choice, 03/07/2022 20:43:50 03/07/2003/07/2022 HEMOG LOBIN A1C hemoglobin A1C 5.2 % (4.0-5 .6) MONIT ORING : In known diabe tic patie nts, hemog lobin A1c targe ts shoul d be discu ssed with healt h care provi amber. DIAGN OSTIC USE: The Ameri can Diabe sharla Assoc iatio n (ADA) and the World Healt h Organ izati on (WHO) recom mend the use of HbA1c to diagn ose diabe sharla using a thres hold of 6.5%. Patie nts who have an HbA1c betwe en 5.7% and 6.4% are consi dered at incre ased risk for devel oping diabe sharla in the futur e. CAUTI ON: False ly low HbA1c resul ts may be obser dominic in patie nts with hemol ytic anemi a, homoz ygous forms of abnor mal hemog lobin (e.g. SS, CC, SC), pregn mis, recen t blood loss or hemog lobin F great er than 7%. Fruct osami ne may be used as an alter bee test in these cases . REFER ENCE: ADA: Stand ards of Medic al Care in Diabe shar[place] 2019, The Journ al of Clini marybel and Appli ed Resea rch and Educa tion Volum e 43, Suppl ement 1 Not Available [facility] (Centralized Electronic Ordering - All Locations) Patient Can Go To The Location Of Their Choice, 03/07/2022 21:05:01 09/20/1909/19/2022 GGTP ggtp 46 U/L (8-61) Not Available [facility] (Centralized Electronic Ordering - All Locations) Patient Can Go To The Location Of Their Choice, 09/19/2022 17:35:51 09/20/1909/19/2022 HEPAT IC FUNCT ION PANEL bilirubin,to haroldo 2.9 mg/dL (0-1.2 ) high Not Available [facility] (Centralized Electronic Ordering - All Locations) Patient Can Go To The Location Of Their Choice, 09/19/2022 17:35:52 09/20/1909/19/2022 HEPAT IC FUNCT ION PANEL bilirubin, direct 0.5 mg/dL (0-0.3 ) high Not Available [facility] (Centralized Electronic Ordering - All Locations) Patient Can Go To The Location Of Their Choice, 09/19/2022 17:35:52 09/20/1909/19/2022 HEPAT IC FUNCT ION PANEL indirect bilirubin 2.4 mg/dL (0.0-0 .7) high Not Available [facility] (Centralized Electronic Ordering - All Locations) Patient Can Go To The Location Of Their Choice, 09/19/2022 17:35:52 09/20/1909/19/2022 HEPAT IC FUNCT ION PANEL albumin 4.8 gm/dL (3.4-4 .8) Not Available [facility] (Centralized Electronic Ordering - All Locations) Patient Can Go To The Location Of Their Choice, 09/19/2022 17:35:52 09/20/1909/19/2022 HEPAT IC FUNCT ION PANEL AST 45 U/L (0-40) high Not Available [facility] (Centralized Electronic Ordering - All Locations) Patient Can Go To The Location Of Their Choice, 09/19/2022 17:35:52 09/20/1909/19/2022 HEPAT IC FUNCT ION PANEL ALT 84 U/L (0-41) high Not Available [facility] (Centralized Electronic Ordering - All Locations) Patient Can Go To The Location Of Their Choice, 09/19/2022 17:35:52 09/20/1909/19/2022 HEPAT IC FUNCT ION PANEL alk phos 60 U/L (40-12 9) Not Available [facility] (Centralized Electronic Ordering - All Locations) Patient Can Go To The Location Of Their Choice, 09/19/2022 17:35:52 09/20/1909/19/2022 HEPAT IC FUNCT ION PANEL total protein 7.0 gm/dL (6.2-8 .2) Not Available [facility] (Centralized Electronic Ordering - All Locations) Patient Can Go To The Location Of Their Choice, 09/19/2022 17:35:52 09/20/1909/19/2022 LIPID PANEL cholesterol, total 161 mg/dL (<200) Not Available [facility] ([facility] Order[facility] - All Locations) Patient Can Go To The Location Of Their Choice, 09/19/2022 17:35:54 09/20/1909/19/2022 LIPID PANEL triglyceride 148 mg/dL (<150) Not Available [facility] ([facility] - All Locations) Patient Can Go To The Location Of Their Choice, 09/19/2022 17:35:54 09/20/1909/19/2022 LIPID PANEL HDL chol 39 mg/dL (>39) low Not Available [facility] (Centralized Electronic Ordering - All Locations) Patient Can Go To The Location Of Their Choice, 09/19/2022 17:35:54 09/20/1909/19/2022 LIPID PANEL LDL cholesterol, calculated 92 mg/dL (0-130 ) Not Available [facility] (Centralized Electronic Ordering - All Locations) Patient Can Go To The Location Of Their Choice, 09/19/2022 17:35:54 09/20/1909/19/2022 LIPID PANEL non HDL cholesterol (calc) 122 mg/dL (<160) Not Available [facility] ([facility] Ordering - All Locations) Patient Can Go To The Location Of Their Choice, 09/19/2022 17:35:54 09/20/1909/19/2022 CK,TO HAROLDO ONLY CK,total only 69 U/L (0-310 ) Not Available [facility] (Centralized Electronic Ordering - All Locations) Patient Can Go To The Location Of Their Choice, 09/19/2022 17:35:55 09/20/1909/19/2022 URIC ACID uric acid 7.8 mg/dL (2.6-8 .7) Not Available [facility] (Centralized Electronic Ordering - All Locations) Patient Can Go To The Location Of Their Choice, 09/19/2022 17:35:56 03/25/2003/25/2023 COMPR EHENS LAURIE METAB OLIC PANL glucose 113 mg/dL (70-99 ) high Not Available [facility] (Centralized Electronic Ordering - All Locations) Patient Can Go To The Location Of Their Choice, 03/25/2023 14:07:56 03/25/2003/25/2023 COMPR EHENS LAURIE METAB OLIC PANL BUN 13 mg/dL (6-20) Not Available [facility] (Centralized Electronic Ordering - All Locations) Patient Can Go To The Location Of Their Choice, 03/25/2023 14:07:56 03/25/2003/25/2023 COMPR EHENS LAURIE METAB OLIC PANL creatinine 1.0 mg/dL (0.7-1 .2) Not Available [facility] (Centralized Electronic Ordering - All Locations) Patient Can Go To The Location Of Their Choice, 03/25/2023 14:07:56 03/25/2003/25/2023 COMPR EHENS LAURIE METAB OLIC PANL sodium 141 mmol/ L (133-1 45) Not Available [facility] (Centralized Electronic Ordering - All Locations) Patient Can Go To The Location Of Their Choice, 03/25/2023 14:07:56 03/25/2003/25/2023 COMPR EHENS LAURIE METAB OLIC PANL potassium 5.2 mmol/ L (3.6-5 .2) Not Available [facility] (Centralized Electronic Ordering - All Locations) Patient Can Go To The Location Of Their Choice, 03/25/2023 14:07:56 03/25/2003/25/2023 COMPR EHENS LAURIE METAB OLIC PANL chloride 104 mmol/ L (98-10 7) Not Available [facility] (Centralized Electronic Ordering - All Locations) Patient Can Go To The Location Of Their Choice, 03/25/2023 14:07:56 03/25/2003/25/2023 COMPR EHENS LAURIE METAB OLIC PANL bicarbonate 27 mmol/ L (22-29 ) Not Available [facility] (Centralized Electronic Ordering - All Locations) Patient Can Go To The Location Of Their Choice, 03/25/2023 14:07:56 03/25/2003/25/2023 COMPR EHENS LAURIE METAB OLIC PANL anion gap 10 (4-17) Not Available [facility] (Centralized Electronic Ordering - All Locations) Patient Can Go To The Location Of Their Choice, 03/25/2023 14:07:56 03/25/2003/25/2023 COMPR EHENS LAURIE METAB OLIC PANL albumin 4.8 gm/dL (3.4-4 .8) Not Available [facility] (Centralized Electronic Ordering - All Locations) Patient Can Go To The Location Of Their Choice, 03/25/2023 14:07:56 03/25/2003/25/2023 COMPR EHENS LAURIE METAB OLIC PANL calcium 9.9 mg/dL (8.6-1 0.5) Not Available [facility] (Centralized Electronic Ordering - All Locations) Patient Can Go To The Location Of Their Choice, 03/25/2023 14:07:56 03/25/2003/25/2023 COMPR EHENS LAURIE METAB OLIC PANL bilirubin,to haroldo 2.6 mg/dL (0-1.2 ) high Not Available [facility] (Centralized Electronic Ordering - All Locations) Patient Can Go To The Location Of Their Choice, 03/25/2023 14:07:56 03/25/202023 COMPR EHENS LAURIE METAB OLIC PANL total protein 6.7 gm/dL (6.2-8 .2) Not Available [facility] (Centralized Electronic Ordering - All Locations) Patient Can Go To The Location Of Their Choice, [id number] 03/25/2023 14:07:56 03/25/2003/25/2023 COMPR EHENS LAURIE METAB OLIC PANL Ag ratio 2.5 Not Available [facility] (Centralized Electronic Ordering - All Locations) Patient Can Go To The Location Of Their Choice, [id number] 03/25/2023 14:07:56 03/25/2003/25/2023 COMPR EHENS LAURIE METAB OLIC PANL AST 42 U/L (0-40) high Not Available [facility] (Centralized Electronic Ordering - All Locations) Patient Can Go To The Location Of Their Choice, [id number] 03/25/2023 14:07:56 03/25/2003/25/2023 COMPR EHENS LAURIE METAB OLIC PANL alk phos 64 U/L (40-12 9) Not Available [facility] (Centralized Electronic Ordering - All Locations) Patient Can Go To The Location Of Their Choice, [id number] 03/25/2023 14:07:56 03/25/2003/25/2023 COMPR EHENS LAURIE METAB OLIC PANL ALT 92 U/L (0-41) high Not Available [facility] (Centralized Electronic Ordering - All Locations) Patient Can Go To The Location Of Their Choice, [id number] 03/25/2023 14:07:56 03/25/2003/25/2023 COMPR EHENS LAURIE METAB OLIC PANL estimated GFR creatinine 85 mL/mi n/1.7 3_M2 Creat inine based estim ated glome rular filtr ation (eGFR ) in adult s is calcu lated using the Natio nal Kidne y Found ation recom karen d 2020 CKD-E PI equat ion. Estim ates GFR from serum creat inine , age and sex. Not Available [facility] (Centralized Electronic Ordering - All Locations) Patient Can Go To The Location Of Their Choice, [id number] 03/25/2023 14:07:56 03/25/2003/25/2023 GGTP ggtp 54 U/L (8-61) Not Available [facility] (Centralized Electronic Ordering - All Locations) Patient Can Go To The Location Of Their Choice, [id number] 03/25/2023 14:07:58 03/25/2003/25/2023 URIC ACID uric acid 6.9 mg/dL (2.6-8 .7) Not Available [facility] (Centralized Electronic Ordering - All Locations) Patient Can Go To The Location Of Their Choice, [id number] 03/25/2023 14:07:59 03/25/2003/25/2023 PSA SCREE N PSA 0.5 NG/mL (0-4) TEST PERFO RMED USING THE EMMETT ELECT 1.618 Technology MILLU MINES CENCE TOTAL PSA ASSAY . PSA VALUE S OBTAI SYLVIA WITH OTHER ASSAY METHO DS OR KITS CANNO T BE USED INTER ENRIQUEZ EABLY . Not Available [facility] (Centralized Electronic Ordering - All Locations) Patient Can Go To The Location Of Their Choice, [id number] 03/25/2023 14:36:04 03/25/2003/25/2023 HEMOG LOBIN A1C hemoglobin A1C 5.3 % (4.0-5 .6) MONIT ORING : In known diabe tic patie nts, hemog lobin A1c targe ts shoul d be discu ssed with healt h care provi amber. DIAGN OSTIC USE: The Ameri can Diabe sharla Assoc iatio n (ADA) and the World Healt h Organ izati on (WHO) recom mend the use of HbA1c to diagn ose diabe sharla using a thres hold of 6.5%. Patie nts who have an HbA1c betwe en 5.7% and 6.4% are consi dered at incre ased risk for devel oping diabe sharla in the futur e. CAUTI ON: False ly low HbA1c resul ts may be obser dominic in patie nts with hemol ytic anemi a, homoz ygous forms of abnor mal hemog lobin (e.g. SS, CC, SC), pregn mis, recen t blood loss or hemog lobin F great er than 7%. Fruct osami ne may be used as an alter bee test in these cases . REFER ENCE: ADA: Stand ards of Medic al Care in Diabe sharla 2019, The Journ al of Clini marybel and Appli ed Resea [facility] and Educa tion Volum e 43, Suppl ement 1 Not Available [facility] (Centralized Electronic Ordering - All Locations) Patient Can Go To The Location Of Their Choice, [id number] 03/25/2023 14:47:22 03/15/2003/15/2024 CBC WITH DIFFE RENTI AL/PL ATELE T WBC 6.4 x10e3 /uL 3.4-10 .8 normal Not Available [facility] ([facility] [place] [place] [facility] [address] [place], [address], 03/23/2024 15:43:47 03/15/2003/15/2024 CBC WITH DIFFE RENTI AL/PL ATELE T RBC 4.79 x10e6 /uL 4.14-5 .80 normal Not Available [facility] ([facility] [place] [place] [facility] [address] [place], [address], 03/23/2024 15:43:47 03/15/2003/15/2024 CBC WITH DIFFE RENTI AL/PL ATELE T hemoglobin 14.6 g/dL 13.0-1 7.7 normal Not Available [facility] ([facility] [place] [place] [facility] [address] [facility], [place], [address], 03/23/2024 15:43:47 03/15/2003/15/2024 CBC WITH DIFFE RENTI AL/PL ATELE T hematocrit 43.4 % 37.5-5 1.0 normal Not Available [facility] ([facility] [place] [place] [facility] [address] [place], [address], 03/23/2024 15:43:47 03/15/2003/15/2024 CBC WITH DIFFE RENTI AL/PL ATELE T MCV 91 fL 79-97 normal Not Available [facility] ([facility] [place] [place] [facility] [address] [place], [address], 03/23/2024 15:43:47 03/15/2003/15/2024 CBC WITH DIFFE RENTI AL/PL ATELE T MCH 30.5 pg 26.6-3 3.0 normal Not Available [facility] ([facility] [place] [place] [facility]) [address] [facility], [place], [address], 03/23/2024 15:43:47 03/15/20 24 03/15/2024 CBC WITH DIFFE RENTI AL/PL ATELE T MCHC 33.6 g/dL 31.5-3 5.7 normal Not Available [facility] ([facility] [place] [place] [facility] [address] [facility], [place], [address], 03/23/2024 15:43:47 03/15/2003/15/2024 CBC WITH DIFFE RENTI AL/PL ATELE T RDW 12.6 % 11.6-1 5.4 Not Available [facility] ([facility] [place] [place] [facility] [address] [facility], [place], [address], 03/23/2024 15:43:47 03/15/2003/15/2024 CBC WITH DIFFE RENTI AL/PL ATELE T platelets 160 x10e3 /uL 150-45 0 normal Not Available [facility] ([facility] [place] [place] [facility] [address] [place], [address], 03/23/2024 15:43:47 03/15/20 24 03/15/2024 CBC WITH DIFFE RENTI AL/PL ATELE T neutrophils 58 % not estab. normal Not Available [facility] ([facility] [place] [place] [facility] [address] [facility], [place], [address], 03/23/2024 15:43:47 03/15/2003/15/2024 CBC WITH DIFFE RENTI AL/PL ATELE T lymphs 30 % not estab. normal Not Available [facility] ([facility] [place] [place] [facility] [address] [place], [address], 03/23/2024 15:43:47 03/15/20 24 03/15/2024 CBC WITH DIFFE RENTI AL/PL ATELE T monocytes 8 % not estab. normal Not Available [facility] ([facility] [place] [place] [facility] [address] [facility], [place], [address], 03/23/2024 15:43:47 03/15/20 24 03/15/2024 CBC WITH DIFFE RENTI AL/PL ATELE T eos 3 % not estab. normal Not Available [facility] ([facility] [place] [place] [facility] [address] [facility], [place], [address], 03/23/2024 15:43:47 03/15/2003/15/2024 CBC WITH DIFFE RENTI AL/PL ATELE T basos 1 % not estab. normal Not Available [facility] ([facility] [place] [place] [facility] [address] [facility], [place], [address], 03/23/2024 15:43:47 03/15/2003/15/2024 CBC WITH DIFFE RENTI AL/PL ATELE T immature cells NEONATAL CRITICAL CARE NURSE Not Available [facility] ([facility] [place] [place] [facility] [address] [place], [address], 03/23/2024 15:43:47 03/15/20 24 03/15/2024 CBC WITH DIFFE RENTI AL/PL ATELE T neutrophils (absolute) 3.8 x10e3 /uL 1.4-7. 0 normal Not Available [facility] ([facility] [place] [place] [facility] [address] [place], [address], 03/23/2024 15:43:47 03/15/20 24 03/15/2024 CBC WITH DIFFE RENTI AL/PL ATELE T lymphs (absolute) 1.9 x10e3 /uL 0.7-3. 1 normal Not Available [facility] ([facility] [place] [place] [facility] [address] [place], [address], 03/23/2024 15:43:47 03/15/20 24 03/15/2024 CBC WITH DIFFE RENTI AL/PL ATELE T monocytes(ab solute) 0.5 x10e3 /uL 0.1-0. 9 normal Not Available [facility] ([facility] [place] [place] [facility] [address] [facility], [place], [address], 03/23/2024 15:43:47 03/15/20 24 03/15/2024 CBC WITH DIFFE RENTI AL/PL ATELE T eos (absolute) 0.2 x10e3 /uL 0.0-0. 4 normal Not Available [facility] ([facility] [place] [place] [facility] [address] [facility], [place], [address], 03/23/2024 15:43:47 03/15/2003/15/2024 CBC WITH DIFFE RENTI AL/PL ATELE T baso (absolute) 0.1 x10e3 /uL 0.0-0. 2 normal Not Available [facility] ([facility] [place] [place] [facility] [address] [facility], [place], [address], 03/23/2024 15:43:47 03/15/20 24 03/15/2024 CBC WITH DIFFE RENTI AL/PL ATELE T immature granulocytes 0 % not estab. Not Available [facility] ([facility] [place] [place] [facility] [address] [facility], [place], [address], 03/23/2024 15:43:47 03/15/20 24 03/15/2024 CBC WITH DIFFE RENTI AL/PL ATELE T immature grans (abs) 0.0 x10e3 /uL 0.0-0. 1 Not Available [facility] ([facility] [place] [place] [facility] [address] [facility], [place], [address], 03/23/2024 15:43:47 03/15/20 24 03/15/2024 CBC WITH DIFFE RENTI AL/PL ATELE T NRBC NEONATAL CRITICAL CARE NURSE Not Available [facility] ([facility] [place] [place] [facility] [address] [facility], [place], [address], 03/23/2024 15:43:47 03/15/20 24 03/15/2024 CBC WITH DIFFE RENTI AL/PL ATELE T hematology comments: NEONATAL CRITICAL CARE NURSE Not Available [facility] ([facility] [place] [place] [facility] [address] [facility] [place], [address], 03/23/2024 15:43:47 03/15/20 24 03/16/2024 COMP. METAB OLIC PANEL (14) glucose 102 mg/dL 70-99 above high normal Not Available [facility] ([facility] [place] [place] [facility] [address] [place], [address], 03/23/2024 15:43:49 03/15/20 24 03/16/2024 COMP. METAB OLIC PANEL (14) BUN 9 mg/dL 6-24 normal Not Available [facility] ([facility] [place] [place] [facility] [address] [place], [address], 03/23/2024 15:43:49 03/15/20 24 03/16/2024 COMP. METAB OLIC PANEL (14) creatinine 1.13 mg/dL 0.76-1 .27 normal Not Available [facility] ([facility] [place] [place] [facility] [address] [place], [address], 03/23/2024 15:43:49 03/15/20 24 03/16/2024 COMP. METAB OLIC PANEL (14) eGFR 76 mL/mi n/1.7 3 >59 normal Not Available [facility] ([facility] [place] [place] [facility] [address] [place], [address], 03/23/2024 15:43:49 03/15/20 24 03/16/2024 COMP. METAB OLIC PANEL (14) BUN/creatini ne ratio 8 9-20 below low normal Not Available [facility] ([facility] [place] [place] [facility] [address] [place], [address], 03/23/2024 15:43:49 03/15/20 24 03/16/2024 COMP. METAB OLIC PANEL (14) sodium 141 mmol/ L 134-14 4 normal Not Available [facility] ([facility] [place] [place] [facility] [address] [place], [address], 03/23/2024 15:43:49 03/15/20 24 03/16/2024 COMP. METAB OLIC PANEL (14) potassium 4.9 mmol/ L 3.5-5. 2 normal Not Available [facility] ([facility] [place] [place] [facility] [address] [place], [address], 03/23/2024 15:43:49 03/15/20 24 03/16/2024 COMP. METAB OLIC PANEL (14) chloride 103 mmol/ L 96-106 normal Not Available [facility] ([facility] [place] [place] [facility] [address] [place], [address], 03/23/2024 15:43:49 03/15/20 24 03/16/2024 COMP. METAB OLIC PANEL (14) carbon dioxide, total 23 mmol/ L 20-29 normal Not Available [facility] ([facility] [place] [place] [facility] [address] [facility] [place], [address], 03/23/2024 15:43:49 03/15/20 24 03/16/2024 COMP. METAB OLIC PANEL (14) calcium 9.9 mg/dL 8.7-10 .2 normal Not Available [facility] ([facility] [place] [place] [facility] [address] [facility] [place], [address], 03/23/2024 15:43:49 03/15/20 24 03/16/2024 COMP. METAB OLIC PANEL (14) protein, total 6.9 g/dL 6.0-8. 5 normal Not Available [facility] ([facility] [place] [place] [facility] [address] [facility] [place], [address], 03/23/2024 15:43:49 03/15/20 24 03/16/2024 COMP. METAB OLIC PANEL (14) albumin 4.6 g/dL 3.8-4. 9 normal Not Available [facility] ([facility] [place] [place] [facility] [address] [facility] [place], [address], 03/23/2024 15:43:49 03/15/20 24 03/16/2024 COMP. METAB OLIC PANEL (14) globulin, total 2.3 g/dL 1.5-4. 5 Not Available [facility] ([facility] [place] [place] [facility]) [address] [facility], [place], [address], 03/23/2024 15:43:49 03/15/20 24 03/16/2024 COMP. METAB OLIC PANEL (14) bilirubin, total 2.9 mg/dL 0.0-1. 2 above high normal Not Available [facility] ([facility] [place] [place] [facility] [address] [facility] [place], [address], 03/23/2024 15:43:49 03/15/20 24 03/16/2024 COMP. METAB OLIC PANEL (14) alkaline phosphatase 66 IU/L 44-121 normal Not Available [facility] ([facility] [place] [place] [facility] [address] [facility], [place], [address], 03/23/2024 15:43:49 03/15/20 24 03/16/2024 COMP. METAB OLIC PANEL (14) AST (SGOT) 38 IU/L 0-40 normal Not Available [facility] ([facility] [place] [place] [facility] [address] [facility], [place], [address], 03/23/2024 15:43:49 03/15/20 24 03/16/2024 COMP. METAB OLIC PANEL (14) ALT (SGPT) 88 IU/L 0-44 above high normal Not Available [facility] ([facility] [place] [place] [facility]) [address] [facility], [place], [address], 03/23/2024 15:43:49 03/15/20 24 03/16/2024 LIPID PANEL cholesterol, total 160 mg/dL 100-19 9 normal Not Available [facility] ([facility] [place] [place] [facility] [address] [facility], [place], [address], 03/23/2024 15:43:50 03/15/2003/16/2024 LIPID PANEL triglyceride s 208 mg/dL 0-149 above high normal Not Available [facility] ([facility] [place] [place] [facility] [address] [place], [address], 03/23/2024 15:43:50 03/15/2003/16/2024 LIPID PANEL HDL cholesterol 38 mg/dL >39 below low normal Not Available [facility] ([facility] [place] [place] [facility] [address] [place], [address], 03/23/2024 15:43:50 03/15/2003/16/2024 LIPID PANEL VLDL cholesterol marybel 35 mg/dL 5-40 Not Available [facility] ([facility] [place] [place] [facility] [address] [place], [address], 03/23/2024 15:43:50 03/15/2003/16/2024 LIPID PANEL LDL chol calc ([facility]) 87 mg/dL 0-99 Not Available [facility] ([facility] [place] [place] [facility] [address] [place], [address], 03/23/2024 15:43:50 03/15/2003/16/2024 LIPID PANEL LDL calc comment: NEONATAL CRITICAL CARE NURSE Not Available [facility] ([facility] [place] [place] [facility] [address] [place], [address], 03/23/2024 15:43:50 03/15/2003/23/2024 PROST ATE SPECI FIC ANTIG EN prostate specific antigen 0.450 NG/mL This PSA resul t was deter mined using the Beckm an chemi lumin ometr ic immun oassa y and value s obtai sylvia canno t be evalu ated inter enriquez eably with diffe rent assay metho ds or kits. This PSA resul t alone canno t be inter prete d as absol [place] evide nce of the prese nce or absen ce of disea se. Refer ence Range : >=40y : 97% of contr ols are <4.0. PSA level s have been repor allegra to corre late with prost ate size. Value s >4.0 are commo n in patie nts with prost atic hyper plasi a. Not Available [facility] [address] [facility], [place], [address], 03/23/2024 15:43:50 03/15/20 24 03/15/2024 HEMOG LOBIN A1C hemoglobin A1C 5.4 % 4.8-5. 6 normal Predi abete s: 5.7 - 6.4 Diabe sharla: >6.4 Glyce duane contr ol for adult s with diabe sharla: <7.0 Not Available [facility] ([facility] [place] [place] [facility] [address] [facility], [place], [address], 03/23/2024 15:43:51 03/15/20 24 03/16/2024 URIC ACID uric acid 7.4 mg/dL 3.8-8. 4 normal Thera peuti c targe t for gout patie nts: <6.0 Not Available [facility] ([facility] [place] [place] [facility] [address] [facility], [place], [address], 03/23/2024 15:43:53 03/25/20 22 03/25/2022 US, liver US Liver Reason : K76.89 ; Clinic al Questi on(s): Other: COMPAR RENETTA: None. IMAGIN G TECHNI QUE: Graysc yazmin and color Dopple r ultras ound examin ation of the liver. FINDIN GS: Liver: Diffus ricky echoge luis parenc hyma with focal sparin g around the gallbl adder. No suspic ious lesion . Smooth hepati c contou r. Biliar y Tree: No intrah epatic or extrah epatic bile duct dilati on is identi fied. Common duct: 0.5 cm. Mobile gallst ones noted. IMPRES KATINA: Echoge luis liver likely repres enting hepati c steato sis. No suspic ious lesion . Cholel ithias is. WSN: [id number] Orderi ng Physic mark: Cristiano MENA, Neil Aguilar Dictat ed By: Rose katz MD, Calvin Dictat ed Date/T shannan: 8:42 am Review ed By: Calvin De La Cruz MD Signed By: Calvin De La Cruz MD Signed Date/T shannan: 8:42 am Transc ribed By: RONY Transc ribed Date/T shannan: 8:24 am Patien t Class: [facility] [address] [facility], [place], [address], 09/16/2022 13:51:31 Result Notes None recorded. Problems Name Problem SNOMED Code Status Onset Date Resolution Date Notes Provider Name and Address Organization Details Recorded Time Allergic rhinitis 37678582 Completed 201107/15/2016 RECORDED 05/21/19 12 9:25AM BY RICKEY JIMÉNEZ, OFFICE VISIT Magui schaefer [facility] 7 10:49:29 Disorder s of bilirubi n excretio n 375316132 Completed 201202/17/2018 Rachna Olivera PA-C [address] [facility] [address] [address] 8 14:34:45 Influenz a vaccine needed 04163170507 06 Completed 200812/07/2013 RECORDED 02/05/20 09 11:11AM BY DENA REED MA, NURSE VISIT Alida schaefer [facility] 5 09:43:36 Hyperlip idemia 21859207 Active [address] [facility] 7 13:02:39 Migraine 29102334 Active [address] [facility] 7 13:02:34 Liver function tests outside referenc e range 298337972 Completed 200812/07/2013 IMPRESSI ON: GILBERT' S DISEASE, ELEV BILI; RECORDED 01/18/20 09 8:15AM BY DEMI RODRIGUEZ ON/ADDEN ADIEL schaefer [facility] 5 09:43:36 Orchitis and epididym itis 315977160 Completed 200812/07/2013 RECORDED 01/18/20 09 8:15AM BY DEMI RODRIGUEZ ON/ADDEN ADIEL schaefer [facility] 5 09:43:36 Primary thromboc ytopenia 453286224 Completed 201102/23/2019 Removal Reason: last cbc normal 10.18 Rachna Olivera PA-C [address] [facility] [address], [facility] [place], [address], [facility] 9 10:10:41 Adult health examinat ion Completed 201107/15/2016 RECORDED 05/21/19 12 9:38AM BY RICKEY JIMÉNEZ, OFFICE VISIT Magui schaefer [facility] 7 10:49:24 Adult health examinat ion Completed 200812/07/2013 RECORDED 01/18/20 09 8:15AM BY DEMI ROD[facility]IGUE[facility] 7 10:49:24 Influenz a vaccine needed 34387021189 06 Completed 200812/27/2013 RECORDED 02/05/20 09 11:11AM BY DENA REED MA, NURSE VISIT Alida schaefer [facility] 5 09:43:36 Liver function tests outside referenc e range 102766282 Completed 200812/27/2013 IMPRESSI ON: GILBERT' S DISEASE, ELEV BILI; RECORDED 01/18/20 09 8:15AM BY DEMI RODRIGUEZ ON/ADDEN ADIEL schaefer [facility] 5 09:43:36 Orchitis and epididym itis 086845108 Completed 200812/27/2013 RECORDED 01/18/20 09 8:15AM BY RICKEY YA, [facility]ANNATI [facility] 5 09:43:36 Abnormal liver function 94693119 Active 2016 Little Olivera PA-C [address], [place], [address], [facility] 7 13:52:09 Impaired fasting glycemia 259616124 Active 2016 a1c 4.6 Rachna Olivera PA-C [address], [place], [address], [facility] 8 14:35:34 Mixed hyperlip idemia 269825583 Active 2016 10.19 - ascvd risk is only 5.9% Rachna Olivera PA-C [address], [place], [address], [facility] 9 12:56:16 Gilbert' s syndrome 35666708 Active 2017 Rachna Olivera PA-C [address], [place], [address], [facility] 8 14:34:40 Gouty arthriti s of the ankle and/or foot 531437892 Active 2017 Rachna Olivera PA-C [address], [place], [address], [facility] 8 14:41:36 Vitamin D deficien cy 90699718 Active 2017 Rachna Olivera PA-C [address], [place], [address], [facility] 8 19:11:43 Major depressi ve disorder 847322119 Completed 202003/15/2024 Rachna Olivera PA-C [address], [place], [address], [facility] 4 10:35:14 Gout 78064235 Active 2020 Little Olivera PA-C [address], [place], [address], [facility] 1 16:21:03 Body mass index 30+ - obesity 244459102 Active 2021 [facility] 2 11:10:31 Steatosi s of liver 545454321 Active 2022 Rachna Olivera PA-C [address], [place], [address], [facility] 3 14:33:57 Problem Notes None recorded. Procedures Surgical History Date Name Laterality Status Provider Name and Address Organization Details Recorded Time 7 Colonoscopy completed Jacquie Guy MA [facility] 01/07/2017 10:56:32 Imaging Results Imaging Date Name Status LastModified by Organiz ation Details LastModified Time 03/25/2022 US, liver completed [facility] (Outpt Imaging) [address] [place], [address], 09/16/2022 13:51:31 Procedure Notes None recorded. Medical Equipment None Reported. Allergies Allergen ID Allergen Name Allergen Category Reaction Reaction Severity Criticality Documentation Date Start Date Code Code System Note Provider Name and Address Organization Details Recorded Time 89277 erenumab- aooe medicatio n Not available Not available Not available 03/07/202261481 [address] [facility] 2 10:17:48 9097 No known allergy (situatio n) Not available Not available Not available Not available 11/30/20132011 54593 [address] [facility] 2 10:17:48 Medications Name Sig Start Date Stop Date Status Note LastModified by Organization Details LastModified Time sumatript an succinate 100 mg tabs 11/03 completed Not Available Not Available Not Available shingrix 50 mcg/0.5ml susr 02/17 completed Not Available Not Available Not Available fluclvx quad inj 2016-02/17 completed Not Available Not Available Not Available fluclvx quad inj 2017-02/17 completed Not Available Not Available Not Available azithromy alexsandra 250 mg tablet TAKE 2 TABLETS ON FIRST DAY , THEN 1 TABLET DAILY FOR 4 DAYS 03/15 completed Not Available Not Available Not Available sumatript an 100 mg tablet TAKE ONE TABLET BY MOUTH EVERY 2-4 HOURS NEEDED FOR MIGRAINE HEADACHE active Not Available Not Available No t Available prednison e 20 mg tablet TAKE 2 TABLETS DAILY FOR 5 DAYS. 03/07 completed Not Available Not Available Not Available rizatript an 10 mg tablet Take 1 tablet as needed by oral route for 30 days. 03/07 completed Not Available Not Available Not Available propranol ol ER 60 mg capsule,2 4 hr,extend ed release 08/28 completed Not Available Not Available Not Available acetazola mide 250 mg tablet TAKE ONE-HALF TABLET BY MOUTH TWICE A DAY NEEDED FOR ALTITUDE SICKNESS FOR 14 DAYS. START 24 HOURS PRIOR TO FLYING. active Not Available Not Available No t Available penicilli n V potassium 500 mg tablet 07/15 completed Not Available Not Available Not Available topiramat e 25 mg tablet Take 1 tablet twice a day by oral route for 30 days. 01/12 completed Had an odd reaction to this meds - metallic taste Not Available Not Available Not Available meclizine 12.5 mg tablet TAKE ONE TO TWO TABLETS BY MOUTH THREE TIMES A DAY NEEDED FOR DIZZINES S 03/15 completed Not Available Not Available Not Available allopurin ol 100 mg tablet TAKE ONE TABLET BY MOUTH EVERY DAY active Not Available Not Available No t Available ciproflox acin 500 mg tablet TWO TIMES DAILY 02/04 completed RECORDED 08/11/19 09 8:59AM BY ALIDA JIMENEZ MD, MEDICATI ON AUTO-ELIEZER CTIVATIO N; Not Available Not Available Not Available lidocaine -prilocai ne 2.5 %-2.5 % topical cream APPLY DIRECTED . 03/10 completed Not Available Not Available Not Available amitripty line 25 mg tablet TAKE THREE TABLETS BY MOUTH AT BEDTIME active Not Available Not Available No t Available propranol ol ER 80 mg capsule,2 4 hr,extend ed release TAKE ONE CAPSULE BY MOUTH EVERY DAY 08/28 completed Not Available Not Available Not Available indometha alexsandra 50 mg capsule Take by oral route for 10 days. 03/07 completed Not Available Not Available Not Available propranol ol ER 120 mg capsule,2 4 hr,extend ed release TAKE ONE CAPSULE BY MOUTH ONCE DAILY active Not Available Not Available No t Available epinephri ne 0.3 mg/0.3 mL injection , auto-inje ctor Take 1 auto every day by injectio n route for 1 day. active Not Available Not Available No t Available amitripty line 100 mg tablet TAKE ONE TABLET BY MOUTH EVERY DAY active from neuro for migraine s Not Available Not Available Not Available loratadin e 10 mg tablet QD 02/16 completed RECORDED 08/04/19 10 10:59AM BY ALIDA JIMENEZ MD, MEDICATI ON AUTO-ELIEZER CTIVATIO N; Not Available Not Available Not Available eletripta n 40 mg tablet TAKE ONE TABLET BY MOUTH AT ONSET OF HEADACHE . IF NO RELIEF THAN MAY REPAEAT AFTER AT LEAST 2 HOURS . MAX OF 2 TABLETS IN 24 HOURS active Not Available Not Available No t Available cyclobenz aprine 5 mg tablet TAKE TWO TABLETS BY MOUTH AT BEDTIME NEEDED FOR MUSCLE SPASM 03/15 completed Not Available Not Available Not Available rosuvasta tin 5 mg tablet TAKE ONE TABLET BY MOUTH DAILY AT BEDTIME 2024 active Not Available Not Available Not Avai lable Boostrix Tdap 2.5 Lf unit-8 mcg-5 Lf/0.5 mL intramusc ular syringe 07/15 completed Not Available Not Available Not Available Excedrin Migraine 1 po 3-4 times a week active prn Not Available Not Available No t Available Vitamin D3 active 1000 iu qd Not Available Not Available Not Available sumatript an 4 mg/0.5 mL subcutane ous pen injector INJECT 0.5 ML 4MG) UNDER THE SKIN ONCE AT ONSET OF MIGRAINE , MAY REPEAT ONE TIME IN ONE HOUR 09/16 completed Not Available Not Available Not Available MoviPrep 100 gram-7.5 gram-2.69 1 gram oral powder packet 01/07 completed Not Available Not Available Not Available cholecalc iferol (vitamin D3) 1,250 mcg (50,000 unit) capsule Take 1 capsule every week by oral route for 56 days. 02/23 completed Not Available Not Available Not Available Prevnar 13 (PF) 0.5 mL intramusc ular syringe 01/07 completed Not Available Not Available Not Available B12 active unsure of strength Not Available Not Available Not Available Flucelvax (PF) 45 mcg (15 mcg x 3)/0.5 mL IM syringe active Not Available Not Available Not Available Fluvirin 45 mcg (15 mcg x 3)/0.5 mL intramusc ular suspensio n 07/15 completed Not Available Not Available Not Available magnesium 400 mg (as magnesium oxide) tablet Take 1 tablet every day by oral route. active Not Available Not Available No t Available Flucelvax Quad (PF) 60 mcg (15 mcg x 4)/0.5 mL IM syringe 02/23 completed Not Available Not Available Not Available Qulipta 30 mg tablet TAKE ONE TABLET BY MOUTH EVERY DAY active Not Available Not Available No t Available Vitals Date Recorded Body height Body mass index (BMI) Body weight Heart rate Oxygen saturation Oxygen saturation in Arterial blood by Pulse oximetry Body temperature Systolic blood pressure Diastolic blood pressure Provider Name and Address Organization Details Last Updated DateTime 1 182.25 cm 28.8 kg/m2 89634.9 9 g 78 /min 98 % 98 % 98.42 [degF] 122 mm[Hg] 80 mm[Hg] Gabi Greco [facility] 1 15:28:55 Date Recorded Body height Body mass index (BMI) Body weight Heart rate Oxygen saturation Oxygen saturation in Arterial blood by Pulse oximetry Body temperature Systolic blood pressure Diastolic blood pressure Provider Name and Address Organization Details Last Updated DateTime 2 182.25 cm 30 kg/m2 05028.3 2 g 68 /min 99 % 99 % 97.7 [degF] 135 mm[Hg] 80 mm[Hg] Gladis [facility] 2 10:21:36 Date Recorded Body height Body mass index (BMI) Body weight Heart rate Oxygen saturation Oxygen saturation in Arterial blood by Pulse oximetry Body temperature Systolic blood pressure Diastolic blood pressure Provider Name and Address Organization Details Last Updated DateTime 3 182.25 cm 30.6 kg/m2 755527. 09 g 70 /min 96 % 96 % 98 [degF] 118 mm[Hg] 75 mm[Hg] Brenda Palm MA [facility] 3 13:16:15 Date Recorded Body height Body mass index (BMI) Body weight Heart rate Oxygen saturation Oxygen saturation in Arterial blood by Pulse oximetry Body temperature Systolic blood pressure Diastolic blood pressure Provider Name and Address Organization Details Last Updated DateTime 3 182.25 cm 30.4 kg/m2 428823. 91 g 60 /min 98 % 98 % 97.9 [degF] 115 mm[Hg] 75 mm[Hg] Maria Elena Richey LPN [facility] 3 08:42:55 Date Recorded Body height Body mass index (BMI) Body weight Heart rate Oxygen saturation Oxygen saturation in Arterial blood by Pulse oximetry Body temperature Systolic blood pressure Diastolic blood pressure Provider Name and Address Organization Details Last Updated DateTime 4 182.25 cm 30.2 kg/m2 762784. 91 g 70 /min 99 % 99 % 98 [degF] 124 mm[Hg] 80 mm[Hg] Jessi Clark MA [facility] 4 09:47:01 Social History Question Answer Notes LastModified by Organizat ion Details LastModified Time Tobacco Smoking Status Never Smoker Sofia schaefer [facility] 05/02/2015 09:24:37 What Is Your Level Of Alcohol Consumption? Occasional Information not available 05/02/2015 Is Blood Transfusion Acceptable In An Emergency? Yes Information not available 05/02/2015 What Is Your Level Of Caffeine Consumption? Moderate Coffee Information not available 05/02/2015 How Much Tobacco Do You Chew? None Information not available 05/02/2015 Are You Currently Employed? No Information not available 03/07/2022 What Type Of Diet Are You Following? REGULAR Information not available 05/02/2015 Which Illicit Or Recreational Drugs Have You Used? None Information not available 03/07/2022 Do You Or Have You Ever Used E-cigarettes Or Vape? 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 With Others Information not available 03/07/2022 Do You Take Precautions To Prevent Distracted Driving? Yes Information not available 05/02/2015 How Often Do You Need To Have Someone Help You When You Read Instructions, Pamphlets, Or Other Written Material From Your Doctor Or Pharmacy? Never Information not available 05/02/2015 Have You Served In The ? No [email or web address] Information not available 01/07/2017 Have You Or Anyone In Your Household Had Any Of The Following Symptoms In The Last 14 Days: Sore Throat, Cough, Chills, Body Aches For Unknown Reasons, Shortness Of Breath For Unknown Reasons, Loss Of Smell, Loss Of Taste, Fever At Or Greater Than 100 Degrees Fahrenheit? No [email or web address] Information not available 08/28/2020 Are You Or Anyone In Your Household A Health Care Provider Or Emergency Responder? No Information not available 08/28/2020 To The Best Of Your Knowledge Have You Been In Close Proximity To Any Individual Who Tested Positive For COVID-19? No [email or web address] Information not available 08/28/2020 Have You Recently Traveled To A COVID-19 High Risk Area Or Gathering In The Last 10 Days? No [email or web address] Information not available 08/28/2020 What Was The Date Of Your Most Recent Tobacco Screening? 03/15/2024 [email or web address] Information not available 03/15/2024 How Many Children Do You Have? 2 Daryl-20, Tanesha -17 Information not available 05/02/2015 Do You Use Protection During Sex? No Information not available 05/02/2015 Do You Use Your Seat Belt Or Car Seat Routinely? Yes Information not available 03/07/2022 Seat Belts Used Routinely Yes Information not available 03/07/2022 Are You Sexually Active? Yes Information not available 05/02/2015 Smoke Alarm In Home Yes Information not available 03/07/2022 Do You Have Smoke And Carbon Monoxide Detectors In Your Home? Yes Information not available 03/07/2022 At What Age Did You Start Smoking Tobacco? 0 Information not available 03/07/2022 Are You Passively Exposed To Smoke? No Information not available 05/02/2015 Do You Or Have You Ever Used Smokeless Tobacco? Never Used Smokeless Tobacco [email or web address] Information not available 02/23/2019 How Much Tobacco Do You Smoke? No Information not available 05/02/2015 Do You Use Sunscreen Routinely? Yes Information not available 05/02/2015 How Many Years Have You Smoked Tobacco? 0 Information not available 03/07/2022 Sex: Unknown Functional Status Question Answer Note LastModified by Organization D etails LastModified Time Are you able to walk? YESWOREST Information not available 03/07/2022 Are you able to care for yourself? Yes Information not available 05/02/2015 What is your exercise level? Moderate Information not available 05/02/2015 Mental Status None recorded. Family History Relationship Description Onset Age of this Age Resolved Age Notes LastModified by Organization Details LastModified Time Mother Essential hypertension 77 [email or web address] Not available 10:08:44 Father Essential hypertension 78 Not available 10:08:44 Sister Malignant tumor of ovary 27 [email or web address] Not available 10:05:59 Notes:No colon cancer/prosta te cancer. No early from [place] Medical History Condition Response Gout Y Depression Y Constipation Y Headaches/Migraines Y Chicken Pox Y Immunizations Vaccine Type Date Status Note Provider Nam e and Address Organization Details Recorded Time Influenza, split virus, trivalent, preservative [address] [facility] 02/14/2014 08:46:34 Influenza, split virus, trivalent, preservative 5 [facility] 14:13:07 Tdap 5 completed [facility]zo [facility] 05/16/2015 11:09:05 Pneumococcal conjugate PCV 13 7 completed [facility] 03/07/2022 10:31:36 zoster live [address] [facility] 11/05/2017 11:36:06 zoster recombinant 8 completed [facility] 03/07/2022 10:31:36 COVID-19, mRNA, LNP-S, PF, 100 mcg/0.5mL dose or 50 mcg/0.25mL dose 1 completed [facility] 03/07/2022 10:31:36 COVID-19, mRNA, LNP-S, PF, 100 mcg/0.5mL dose or 50 mcg/0.25mL dose 1 completed [facility] Nicolemicheal [facility] 03/07/2022 10:31:36 COVID-19, mRNA, LNP-S, PF, 100 mcg/0.5mL dose or 50 mcg/0.25mL dose 1 completed Not Available [facility] 09/16/2022 13:11:02 Influenza, MDCK, quadrivalent, PF 2 completed [facility] 03/07/2022 10:31:36 Influenza, MDCK, quadrivalent, PF 7 completed [facility] 03/07/2022 10:31:36 Influenza, MDCK, quadrivalent, PF 8 completed Gladis Levy RICKEY schaefer, [facility] 03/07/2022 10:31:36 Influenza, split virus, trivalent, preservative 6 completed Gladis Miguel Nicolemicheal RICKEY null, [facility] 03/07/2022 10:31:36 Influenza, split virus, trivalent, preservative 0 completed Gladis Levy RICKEY silvano, [facility] 03/07/2022 10:31:36 Influenza, MDCK, quadrivalent, PF 1 completed Gladis Levy RICKEY silvano, [facility] 03/07/2022 10:31:36 zoster recombinant 8 completed Gladis Levy RICKEY silvano, [facility] 03/07/2022 10:31:36 Influenza, MDCK, quadrivalent, PF 9 completed Gladis Levy RICKEY silvano, [facility] 03/07/2022 10:31:36 Influenza, split virus, quadrivalent, PF 0 completed Gladis Levy RICKEY silvano, [facility] 03/07/2022 10:31:36 Influenza, split virus, quadrivalent, PF [address] [facility] 03/10/2023 08:43:16 Td (adult), 2 Lf tetanus toxoid, preservative free, adsorbed 3 completed Not Available [facility] 11/30/2013 14:07:41 Influenza, split virus, trivalent, preservative 9 completed Not Available [facility] 11/30/2013 14:07:41 Influenza, split virus, trivalent, preservative 1 completed Not Available [facility] 11/30/2013 14:07:41 Influenza, split virus, trivalent, preservative 3 completed Not Available [facility] 11/30/2013 14:07:42 Past Encounters Encounter ID Performer Location Encounter Start Date Encounter Closed Date Diagnosis/Indication Diagnosis SNOMED-CT Code Diagnosis ICD10 Code Diagnosis Note [id number] [facility]Comm er[facility] [address] [facility] [address] [place], [place] [address] 10/28/2006 00:00:00 [id number] autoEComm erce [address] [facility] [address] [place], [place] [id number] 04/14/2007 00:00:00 [id number] autoEComm erce [address] [facility] [address] [place], [place] [id number] 06/03/2006 00:00:00 [id number] autoEComm erce [address] [facility] [place], [place] [id number] 01/26/2008 00:00:00 [id number] autoEComm erce [address] [facility] [place], [place] [id number] 11/01/2008 00:00:00 [id number] autoEComm erce [address] [facility] [address] [place], [place] [id number] 12/20/2008 00:00:00 [id number] autoEComm erce [address] [facility] [place], [place] [id number] 01/17/2009 00:00:00 [id number] autoEComm erce [address] [facility] [place], [place] [id number] 05/21/2011 00:00:00 [id number] Tamie Garcia [facility] Main Office [address] [address] [place] [address] 05/02/2015 09:14:56 05/02/2015 10:29:37 Adult health examination 703685174 Z00.00 Hyperlipidemia 05639078 E78.5 based on ASCVD risk assessment pt is NOT in statin benefit grp w/ risk at 3.5% Administra tion of diphtheria, pertussis, and tetanus vaccine 081361046 Z23 [id number] Alida paulson Main Office [address] [address] [place] [address] 07/15/2016 10:22:32 07/15/2016 11:27:36 Gout 69581781 M10.9 Continue indomethac in 50 mg BID. Labs for metabolic work up as scheduled. Purine restricted diet recommende d. Hyperlipidemia 17165665 E78.5 Discussed low fat diet. Advised to increase exercise activity. Check lipids. Hyperglycemia 29349001 R 73.9 Elevated blood-pressure reading without diagnosis of hypertension 708733221 R03.0 Lower caffeine to 1 cup of coffee daily, continue low sodium diet. Check BP daily and return in 2-4 weeks. PE will be set up. Body mass index 25-29 - overweight 208030552 E66.3 Z68.25 [id number] Alida paulson Main Office [address] [facility] [address] [facility] [place] [address] 01/07/2017 12:58:44 01/07/2017 14:21:51 Adult health examination 261975948 Z00.00 Hyperlipidemia 21318351 E78.5 based on ASCVD risk assessment pt is NOT in statin benefit grp w/ risk at 3.5% Impaired f asting glycemia 233316638 R73.01 [id number] Piotr Stafford MD Main Office [address] [facility] [address] [place] [address] 02/17/2018 13:42:08 02/17/2018 14:51:47 Adult health examination 736478997 Z00.00 Hyperlipidemia 89581655 E78.00 based on ASCVD risk assessment pt is NOT in statin benefit grp w/ risk at 3.5% last year - will recheck Migraine 39665335 G43.90 9 pt typically uses excedrin migraine - reserves imitrex for rare use Body mass index 25-29 - overweight 775218322 E66.3 Z68.29 Inadequate immune status 327067313 Z23 Z28.3 pt needs this for work Gilbert's syndrome 46728 000 E80.4 known x yrs Gouty arth ritis of the ankle and/or foot 089061448 M10.9 had recent flare last week (prior one yr ago) - better p indocin - will check uric acid level in a few wks [id number] Rachna Olivera PA-C Main Office [address] [facility] [address] [place] [address] 11/03/2018 08:58:19 11/03/2018 09:53:39 Migraine 94325698 G43.909 increased freq of migraines past 1.5 months - will refill abortive imitrex and give trial of preventive topamax f/u 6 wks - if no sig improvemen t or worse then consider neuro eval 25 minute office visit with greater than 50% of the visit face-to-fa ce with the patient and/or family providing counseling and/or coordinati on of care. [id number] Rachna Olivera PA-C Main Office [address] [facility] [address] [place] [address] 01/12/2019 10:19:34 01/12/2019 11:30:41 Migraine 65077953 G43.909 tried topamax - no sig help, in fact had SE of metallic taste so stopped med 2 wks ago -- cont prn excedrin migraine then triptan, will get neuro eval, meanwhile give trial of elavil h/o migraines ~ 10 yrs 15 minute office visit with greater than 50% of the visit face-to-fa ce with the patient and/or family providing counseling and/or coordinati on of care. [id number] Rachna Olivera PA-C Main Office [address] [facility] [address] [place] [address] 02/23/2019 09:05:02 02/23/2019 10:36:34 Adult health examination 662483460 Z00.00 Migraine 64322919 G43.90 9 tried topamax - no sig help, in fact had SE of metallic taste so stopped med 2 wks ago -- cont prn excedrin migraine then triptan, pending neuro eval next wk - meanwhile cont increase trial of elavil h/o migraines ~ 10 yrs Mixed hyperlipidemia 267 927190 E78.2 Gilbert's syndrome 74785 000 E80.4 known x yrs - offered re-assuran ce Vitamin D deficiency 347 07391 E55.9 Gouty arth ritis of the ankle and/or foot 607813906 M10.9 stable c no flares lately, uses prn indocin - requests refill Abnormal l iver function 33294738 K76.89 elevated alt likely d/t mild fatty liver dz - will recheck Impaired f asting glycemia 733883319 R73.01 Body mass index 25-29 - overweight 029131616 E66.3 Z68.28 [id number] Rachna Olivera PA-C Main Office [address] [place] [address] 08/28/2020 09:48:59 08/28/2020 11:01:23 Adult health examination 621516721 Z00.00 Chest pain 30923579 R07. 9 int over past few months, can happen at rest, not c exertion - will check ekg to r/o - ekg wnl - offered reassuranc e Migraine 75416825 G43.90 9 cont meds, f/u c neuro Mixed hyperlipidemia 267 025047 E78.2 ? genetic - does not eat a lot of red meat Gilbert's syndrome 96534 000 E80.4 known x yrs - offered re-assuran ce Gouty arth ritis of the ankle and/or foot 659604808 M10.9 last flare ~ 2 mos. ago - better lately p resumed allopurino l Abnormal l iver function 97590732 K76.89 elevated alt likely d/t mild fatty liver dz - will recheck Impaired f asting glycemia 938926953 R73.01 Body mass index 25-29 - overweight 011453758 E66.3 Z68.29 Major depr essive disorder 274001323 F32.0 mild - ? 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 elavil (given by neuro for migraines) is help mdd - cont as dir Counseling 183060879 Z71 .9 Referral for counseling with Jacinto / JIMBO Lucio. Please provide patient with contact info to schedule their appointmen tScott Narayan# email: [email or web address] [id number] Little Olivera PA-C Main Office [address] [facility] [address] [place] [address] 10/04/2020 15:11:40 10/04/2020 16:21:18 Gout 71599561 M10.9 Gout flare up of left great toe and ankle Will refill indomethac in 50 mg TID with food. Purine restricted diet recommende d. Will check uric acid levels in 2-3 weeks after symptoms resolved. Consider increasing Allopurino l to 200 mg daily. [id number] Rachna Olivera PA-C Main Office [address] [facility] [address] [place] [address] 03/07/2022 10:08:31 03/07/2022 11:40:02 Adult health examination 012310627 Z00.00 Recommende d to get COVID booster. Screening UTD. Repeat labs. Gout 94481072 M10.9 Stable with no recent flare up. Cont allopurino l. Hyperlipidemia 10970737 E78.00 based on ASCVD risk assessment pt is NOT on statin -- risk at 3.5% last year - will recheck labs. Pt does not eat a lot of red meat. ? genetics. Impaired f asting glycemia 702997651 R73.01 Recheck labs. Major depr essive disorder 261679549 F32.0 mild - ? 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 elavil (given by neuro for migraines) is help mdd - cont as dir 03.07.2022 : Stable and related to migraines. Does not see a therapist. Recommende d to see a therapist if he feels inclined. Cont f/u with neurology. PHQ9 score 2. Migraine 73993872 G43.90 9 Continues to have 3-4 a week. Cont to f/u with neurology. Recently got approved for Botox treatment and has appt with neuro in March. Vitamin D deficiency 347 06682 E55.9 Takes vitamin D supplement s daily. Stable in 2019. Recheck labs. Gilbert's syndrome 51083 000 E80.4 known x yrs. Stable. Nocturia 857835609 R35.1 No family history. With shared decision making pt would like to get screened. Body mass index 30+ - obesity 584432355 Z68.30 E66.9 Cont daily exercise with walking. Admits to drinking beer throughout the week which has added to weight gain. Cont diet with lean protein and vegetables . [id number] Rachna Olivera PA-C Main Office [address] [facility] [address] [place] [address] 09/16/2022 13:08:16 09/16/2022 14:11:15 Major depressive disorder 386684323 F32.0 mild - ? 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 elavil (given by neuro for migraines) is help mdd - cont as dir 03.07.2022 : Stable and related to migraines. Does not see a therapist. Recommende d to see a therapist if he feels inclined. Cont f/u with neurology. PHQ9 score 2. 5.23 - pt did well on elizabeth/phq - most anxious about his next migraine Body mass index 30+ - obesity 848098130 Z68.30 E66.9 Cont daily exercise with walking. Admits to drinking beer throughout the week which has added to weight gain. Cont diet with lean protein and vegetables . Hyperlipidemia 30734298 E78.00 cont statin, recheck lipids pending Gout 46085601 M10.9 Stable with no recent flare up. Cont allopurino l. Steatosis of liver 1007 K76.0 Brandon -- evidence of fatty liver disease - no evidence of liver tumor --- rec. weight loss, og low fat diet to help lessen the risk of biliary colic (gallstone s found). rec less etoh (but doesen't drink too much - ave ~ 4 beers/wk)r echeck lft's & check ggtp - if cont to climb, consider gi eval and / or vit Ept does take a fair amount of acetaminop hen -- is in his Excedrin migraine med which he takes fairly often Migraine 08828934 G43.90 9 Continues to have 3-4 a week. Cont to f/u with neurology, has had 1 Botox treatment- next 5.4. [id number] Rachna Olivera PA-C Main Office [address] [facility] [address] [place] [address] 03/10/2023 08:30:36 03/10/2023 09:32:55 Adult health examination 998016266 Z00.00 Recommende d to get COVID booster. Screening UTD. Repeat labs. Major depr essive disorder 619703886 F32.0 mild - ? 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 elavil (given by neuro for migraines) is help mdd - cont as dir 03.07.2022 : Stable and related to migraines. Does not see a therapist. Recommende d to see a therapist if he feels inclined. Cont f/u with neurology. PHQ9 score 2. 10.23 - stable -pt did well on elizabeth/phq Body mass index 30+ - obesity 646636094 Z68.30 E66.9 Cont daily exercise with walking. Admits to drinking beer throughout the week which has added to weight gain. Cont diet with lean protein and vegetables . Hyperlipidemia 60942347 E78.00 cont statin, recheck lipids pending Gout 16251833 M10.9 Stable with no recent flare up. Cont allopurino l - rec increase from qod to qd Steatosis of liver 1007 K76.0 Brandon -- evidence of fatty liver disease on u/s 04.09 - no evidence of liver tumor --- rec. weight loss, og low fat diet to help lessen the risk of biliary colic (gallstone s found). rec less etoh (but doesn't drink too much - ave ~ 4 beers/wk)r echeck lft's & check ggtp - if cont to climb, consider gi eval and / or vit Ept does take a fair amount of acetaminop hen -- is in his Excedrin migraine med which he takes fairly often Migraine [id number] G43.90 9 Continues to have 3-4 a week. Cont to f/u with neurology, had 3 Botox treatment - no sig change, pending results of sleep study Nocturia [id number] R35.1 No family history. With shared decision making pt would like to get screened. Impaired f asting glycemia [id number] R73.01 Recheck labs. [id number] Rachna Olivera PA-C Main Office [address] [facility] [address] [place] [address] 03/15/2024 09:40:22 03/15/2024 10:46:02 Adult health examination [id number] Z00.00 Recommende d to get COVID booster. Screening UTD. Repeat labs. colon utd Body mass index 30+ - obesity [id number] Z68.30 E66.9 Cont daily exercise with walking. Cont diet with lean protein and vegetables . Hyperlipidemia 34033074 E78.00 cont statin, recheck lipids Gout [id number] M10.9 Stable with no recent flare up. Cont allopurino l - rec increase from qod to qd 10.24 - recheck uric acid Steatosis of liver 1007 K76.0 Brandon -- evidence of fatty liver disease on u/s 04.09 - no evidence of liver tumor --- rec. weight loss, og low fat diet to help lessen the risk of biliary colic (gallstone s found). rec less etoh (but doesn't drink too much - ave ~ 4 beers/wk)r echeck lft's & check ggtp - if cont to climb, consider gi eval and / or vit Ept does take a fair amount of acetaminop hen -- is in his Excedrin migraine med which he takes fairly often 10.24 - had nl ggtp last yr, recheck cmp above Migraine [id number] G43.90 9 Continues to have 3-4 a week. Cont to f/u with neurology, had 3 Botox treatment - no sig change, pending results of sleep study10.24 - fairly stable lately, cont meds as dir - ? results of sleep study - not mentioned in last neuro note - will attempt to get results Nocturia [id number] R35.1 No family history. With shared decision making pt would like to get screened. Impaired f asting glycemia [id number] R73.01 Recheck labs. Health Concerns Section Related Observation LastModified by Organization Detai ls LastModified Time None Recorded Concern Status LastModified by Organization Details LastModified Time None Recorded Advance Directives Directive None Recorded Payers Encounter Date Sequence Insurance Name Policy Number Policy Stevenson Covered Member ID Stevenson Member ID Guarantor Name 10/04/2020 1 [place] [id number] Imanira Nicholsonnormo [id number] Brandon Nicholsonluke Wadsworth 03/07/2022 1 [place] [id number] Imani Commisso [id number] Brandon Nicholsonluke Wadsworth 03/07/2022 2 [place] [employer] [facility] Brandon Valleandre Wadsworth [id number] Brandon Lynluke Wadsworth 09/16/2022 1 [place] [id number] Imani Commisso [id number] Brandon Santillan Jr 09/16/2022 2 [place] [facility] Brandon Santillan Jr [id number] Brandon Santillan Jr 03/10/2023 1 [place] [id number] Imani Santillan [id number] Brandon Santillan Jr 03/10/2023 2 [place] [facility] Brandon Santillan Jr [id number] Brandon Santillan Jr 03/15/2024 1 [place] [id number] Imani Santillan [id number] Brandon Santillan Jr 03/15/2024 2 [place] [facility] Brandon Santillan Jr [id number] Brandon Santillan Jr Notes Date Note Type Note Provider Name and Address Organization Details Recorded Time 10/04/2020 text/html 55 year old male with complaints of gout in left big toe and ankle. Pt states gout started on friday and has been getting worse. Pt ran out of indomethocin yesterday. Pt took aleve yesterday which relieved some of the pain. Pt did drink some beers on friday but denies any beer or red meats prior to the flare up. Little Olivera PA-C [address] [address], [place], [address], [facility] 10/04/2020 16:21:39 03/07/2022 text/html 56yo male presen ts for annual PE.Overall feels well.Colonoscopy done in 2016. Repeat in 2026.Vaccines UTD.No past PSA screen. No family history of prostate cancer. Rachna Olivera PA-C [address] [address], [place], [address], [facility] [place] 03/07/2022 13:22:01 09/16/2022 text/html Anxiety/Depressi on Reported bypatient.Quality: symptoms improved Severity:denies suicidal ideations Context:no major life stressors (x migraines) Associated Symptoms:denies homicidal ideations Rachna Olivera PA-C [address] [facility] [address], [place], [address], [facility] 09/16/2022 14:35:23 03/10/2023 text/html here for annual pe. Rachna Olivera PA-C [address] [facility] [address], [place], [address], [facility] 03/10/2023 09:32:45 03/15/2024 text/html here for annual pe. Rachna Olivera PA-C [address] [facility] [address], [place], [address], [facility] 03/15/2024 10:44:03
== END 2024-08-12 10:05 | disposition home or self-care (01) ==
LOC: HO.HSMS 08:52
PROVIDERS: PCP Physician Assistant Medical; Visit Provider Nurse Practitioner Family
DX: G43.109 Migraine with aura, not intractable, without status migrainosus (principal); H53.149 Visual discomfort, unspecified; R42 Dizziness and giddiness
CPT/HCPCS: 99214

== ENCOUNTER 2025-04-19 07:50 | Outpatient (AMB) | payer BC, MEDICARE, SELFPAY ==
--- OUTSIDE RECORDS SUMMARY | 2025-04-19 07:54 | XMS_ITS | Continuity of Care Document ---
Author Organization [facility], Main Office Address [address] [place] [address] Care Team Providers Care Grocery Deliverer Name Role Phone JANET CAMPOS Vendor Analyst CATALINA GUZMAN OTHER ANSON OLIVERA Primary Care Provider Assessment No assessment recorded. Plan of Treatment Reminders Order Date Submit Date Provider Last Modified By Organization Details Last Modified Time Details Appointments None recorded. Lab uric acid, serum or plasma DIANNE [facility], [address], [address], 5 08:07:05 vitamin D, 25-hydrox y, total, serum DIANNE [facility], [address], [place], [address], 5 08:07:05 PSA, total, serum or plasma DIANNE [facility] (Centralized Electronic Ordering - All Locations), Patient Can Go To The Location Of Their Choice, 5 08:07:05 lipid panel, serum DIANNE [facility] (Centralized Electronic Ordering - All Locations), Patient Can Go To The Location Of Their Choice, [id number] 5 08:07:04 CMP, serum or plasma DIANNE [facility] (Centralized Electronic Ordering - All Locations), Patient Can Go To The Location Of Their Choice, [id number] 08:07:04 Referral None recorded. Procedures None recorded. Surgeries None recorded. Imaging None recorded. Medication Orders None recorded. Patient TargetsNo targets recorded. Patient Instructions Encounter Date Encounter Id Patient Instructions Last Modified By Organization Details Last Modified Time 03/23/2025 [id number] Prostate Cancer Screening pmadden Not available 03/23/2025 13:45:38 A healthy lifestyle: care instructions pmadden Not available 03/23/2025 13:45:38 Well Visit 50 to 65: Care Instructions pmadden Not available 03/23/2025 13:45:38 Medications (OTC , herbal therapies, supplements) reviewed and reconciled with patient and or caregiver, including potential side effects, drug interactions, instructions, and the consequences of not taking medication. Reviewed potential barriers to medication adherence, such as side effects from medication or cost of medication. pmadden Not available 03/23/2025 13:55:42 Reason for Referral None Reported. Results Created Date Observation Date Name Description Value Unit Range Abnormal Flag Note LastModifiedBy Organization Detail LastModifiedTime 03/25/2003/26/2025 CMP14 (REFL EX HGB A1C) glucose 98 mg/dL 70-99 normal Not Available [facility] ([facility]) [address] [place], [address], 03/26/2025 08:07:04 03/25/2003/26/2025 CMP14 (REFL EX HGB A1C) BUN 17 mg/dL 6-24 normal Not Available [facility] ([facility]) [address] [place], [address], 03/26/2025 08:07:04 03/25/20 25 03/26/2025 CMP14 (REFL EX HGB A1C) creatinine 1.08 mg/dL 0.76-1 .27 normal Not Available [facility] ([facility]) [address] [place], [address], 03/26/2025 08:07:04 03/25/20 25 03/26/2025 CMP14 (REFL EX HGB A1C) eGFR 80 mL/mi n/1.7 3 >59 normal Not Available [facility] ([facility]) [address] [facility], [place], [address], 03/26/2025 08:07:04 03/25/20 25 03/26/2025 CMP14 (REFL EX HGB A1C) BUN/creatini ne ratio 16 9-20 normal Not Available [facility] ([facility]) [address] [facility], [place], [address], 03/26/2025 08:07:04 03/25/20 25 03/26/2025 CMP14 (REFL EX HGB A1C) sodium 144 mmol/ L 134-14 4 normal Not Available [facility] ([facility]) [address] [facility], [place], [address], 03/26/2025 08:07:04 03/25/20 25 03/26/2025 CMP14 (REFL EX HGB A1C) potassium 4.7 mmol/ L 3.5-5. 2 normal Not Available [facility] ([facility]) [address] [place], [address], 03/26/2025 08:07:04 03/25/20 25 03/26/2025 CMP14 (REFL EX HGB A1C) chloride 104 mmol/ L 96-106 normal Not Available [facility] ([facility]) [address] [place], [address], 03/26/2025 08:07:04 03/25/20 25 03/26/2025 CMP14 (REFL EX HGB A1C) carbon dioxide, total 27 mmol/ L 20-29 normal Not Available [facility] ([facility]) [address] [place], [address], 03/26/2025 08:07:04 03/25/20 25 03/26/2025 CMP14 (REFL EX HGB A1C) calcium 9.9 mg/dL 8.7-10 .2 normal Not Available [facility] ([facility]) [address] [place], [address], 03/26/2025 08:07:04 03/25/20 25 03/26/2025 CMP14 (REFL EX HGB A1C) protein, total 6.8 g/dL 6.0-8. 5 normal Not Available [facility] ([facility]) [address] [place], [address], 03/26/2025 08:07:04 03/25/20 25 03/26/2025 CMP14 (REFL EX HGB A1C) albumin 4.6 g/dL 3.8-4. 9 normal Not Available [facility] ([facility]) [address] [place], [address], 03/26/2025 08:07:04 03/25/20 25 03/26/2025 CMP14 (REFL EX HGB A1C) globulin, total 2.2 g/dL 1.5-4. 5 Not Available [facility] ([facility]) [address] [place], [address], 03/26/2025 08:07:04 03/25/2003/26/2025 CMP14 (REFL EX HGB A1C) bilirubin, total 2.9 mg/dL 0.0-1. 2 above high normal Not Available [facility] ([facility]) [address] [place], [address], 03/26/2025 08:07:04 03/25/20 25 03/26/2025 CMP14 (REFL EX HGB A1C) alkaline phosphatase 50 IU/L 47-123 normal Not Available [facility] ([facility]) [address] [place], [address], 03/26/2025 08:07:04 03/25/20 25 03/26/2025 CMP14 (REFL EX HGB A1C) AST (SGOT) 18 IU/L 0-40 normal Not Available [facility] ([facility]) [address] [place], [address], 03/26/2025 08:07:04 03/25/20 25 03/26/2025 CMP14 (REFL EX HGB A1C) ALT (SGPT) 19 IU/L 0-44 normal Not Available [facility] ([facility]) [address] [facility], [place], [address], 03/26/2025 08:07:04 03/25/20 25 03/26/2025 LIPID PANEL cholesterol, total 163 mg/dL 100-19 9 normal Not Available [facility] ([facility]) [address] [place], [address], 03/26/2025 08:07:04 03/25/20 25 03/26/2025 LIPID PANEL triglyceride s 95 mg/dL 0-149 normal Not Available [facility] ([facility]) [address] [place], [address], 03/26/2025 08:07:04 03/25/20 25 03/26/2025 LIPID PANEL HDL cholesterol 43 mg/dL >39 normal Not Available [facility] ([facility]) [address] [place], [address], 03/26/2025 08:07:04 03/25/20 25 03/26/2025 LIPID PANEL VLDL cholesterol marybel 18 mg/dL 5-40 Not Available [facility] ([facility]) [address] [place], [address], 03/26/2025 08:07:04 03/25/20 25 03/26/2025 LIPID PANEL LDL chol calc ([facility]) 102 mg/dL 0-99 above high normal Not Available [facility] ([facility]) [address] [place], [address], 03/26/2025 08:07:04 03/25/20 25 03/26/2025 LIPID PANEL LDL calc comment: COLOR TELEVISION CONSOLE MONITOR Not Available [facility] ([facility]) [address] [place], [address], 03/26/2025 08:07:04 03/25/20 25 03/26/2025 PROST ATE-S PECIF IC AG prostate specific Ag 0.5 NG/mL 0.0-4. 0 normal Cinthya ECLIA metho dolog y. Accor ding to the Ameri can Urolo gical Assoc iatio n, Serum PSA shoul d decre ase and remai n at undet ectab le level s after radic al prost atect ryan. The AUA defin es bioch emica l recur rence as an initi al PSA value 0.2 ng/mL or great er follo wed by a subse quent confi rmato ry PSA value 0.2 ng/mL or great er. Value s obtai sylvia with diffe rent assay metho ds or kits canno t be used inter enriquez eably . Resul ts canno t be inter prete d as absol kaylee evide nce of the prese nce or absen ce of [facility] eunice aguila se. Not Available [facility] ([facility]) [address] [facility], [place], [address], 03/26/2025 08:07:05 03/25/2003/26/2025 VITAM IN D, 25-HY DROXY vitamin D, 25-hydroxy 36.3 NG/mL 30.0-1 00.0 Vitam in D defic iency has been defin ed by the Insti tute of Medic ine and an Endoc rine Socie ty pract ice guide line as a level of serum 25-OH vitam in D less than 20 ng/mL (1,2) . The Endoc rine Socie ty went on to furth er defin e vitam in D insuf ficie ncy as a level betwe en 21 and 29 ng/mL (2). 1. IOM (Inst itute of Medic ine). 2009. Dieta ry refer ence intak es for calci um and D. Helio kunz [place]: The Natio nal [facility] Press . 2. Lenard hong MF, Trav ey [place], Kathleen off-F errar i SALCEDO, et al. Evalu ation , treat ment, and preve ntion of vitam in D defic iency : an Endoc rine Socie ty clini marybel pract ice guide line. JCEM. 2010; 96(7) :1911 -30. Not Available [facility] ([facility]) [address] [facility], [place], [address], 03/26/2025 08:07:05 03/25/20 25 03/26/2025 URIC ACID uric acid 6.3 mg/dL 3.8-8. 4 normal Thera peuti c targe t for gout patie nts: <6.0 Not Available [facility] ([facility]) [address] [facility], [place], [address], 03/26/2025 08:07:05 Result Notes None recorded. Problems Name Problem SNOMED Code Status Onset Date Resolution Date Notes Provider Name and Address Organization Details Recorded Time Liver function tests outside referenc e range 337241523 Completed 200812/07/2013 IMPRESSI ON: GILBERT' S DISEASE, ELEV BILI; RECORDED 01/18/20 09 8:15AM BY DEMI RODRIGUEZ/SHERLY schaefer [facility] 5 09:43:36 Orchitis and epididym itis 330814368 Completed 200812/07/2013 RECORDED 01/18/20 09 8:15AM BY DEMI RODRIGUEZ/SHERLY schaefer [facility] 5 09:43:36 Adult health examinat ion Completed 200812/07/2013 RECORDED 01/18/20 09 8:15AM BY DEMI RODRIGUEZ/SHERLY schaefer [facility] 7 10:49:24 Liver function tests outside referenc e range 795217844 Completed 200812/27/2013 IMPRESSI ON: GILBERT' S DISEASE, ELEV BILI; RECORDED 01/18/20 09 8:15AM BY DEMI RODRIGUEZ ON/ADDEN DUM Alida mccullough silvano [facility] 5 09:43:36 Orchitis and epididym itis 907533889 Completed 200812/27/2013 RECORDED 01/18/20 09 8:15AM BY DEMI RODRIGUEZ ON/ADDEN DUM Alida HollandFranc mccullough silvano [facility] 5 09:43:36 Influenz a vaccine needed 60491767038 06 Completed 200812/07/2013 RECORDED 02/05/20 09 11:11AM BY DENA REED MA, NURSE VISIT Alida schaefer [facility] 5 09:43:36 Influenz a vaccine needed 06046147775 06 Completed 200812/27/2013 RECORDED 02/05/20 09 11:11AM BY DENA REED MA, NURSE VISIT Alida schaefer [facility] 5 09:43:36 Allergic rhinitis 05858072 Completed 201107/15/2016 RECORDED 05/21/19 12 9:25AM BY RICKEY JIMÉNEZ, OFFICE VISIT Magui schaefer [facility] 7 10:49:29 Hyperlip idemia 57597878 Active 2011 Magui schaefer [facility] 7 13:02:39 Migraine 89245553 Active 2011 Magui schaefer [facility] 7 13:02:34 Primary thromboc ytopenia 957820207 Completed 201102/23/2019 Removal Reason: last cbc normal 10.18 Anson Olivera PA-C [address] [facility] [address], [place], [address] , [facility] 9 10:10:41 Adult health examinat ion Completed 201107/15/2016 RECORDED 05/21/19 12 9:38AM BY RICKEY JIMÉNEZ OFFICE VISIT Magui Echols MA null, [facility] 7 10:49:24 Disorder s of lenora funes n 046785537 Completed 201202/17/2018 Anson Olivera PA-C [address], [place], [address], [facility] 8 14:34:45 Abnormal liver function 93977890 Active 2016 Little Olivera PA-C [address], [place], [address], [facility] 7 13:52:09 Impaired fasting glycemia 688809829 Active 2016 a1c 4.6 Anson Olivera PA-C [address], [place], [address], [facility] 8 14:35:34 Mixed hyperlip idemia 193494750 Active 2016 10.19 - ascvd risk is only 5.9% Anson Olivera PA-C [address], [place], [address], [facility] 9 12:56:16 Gilbert' s syndrome 59697746 Active 2017 Anson Olivera PA-C [address], [place], [address], [facility] 8 14:34:40 Gouty arthriti s of ankle and/or foot 798676364 Active 2017 Anson Olivera PA-C [address], [place], [address], [facility] 8 14:41:36 Vitamin D deficien cy 78187927 Active 2017 Anson Olivera PA-C [address], [place], [address], [facility] 8 19:11:43 Major depressi ve disorder 844231218 Completed 202003/15/2024 Anson Cristiano MENA-C [address], [place], [address], [facility] 4 10:35:14 Gout 36721788 Active 2020 Little Feldmanhusam MENA-Leonard [address], [place], [address], [facility] 1 16:21:03 Body mass index 30+ - obesity 839394250 Active 2021 [facility] 2 11:10:31 Steatoti c liver disease 819368326 Active 2022 Anson Cristiano MENA-Leonard [address], [place], [address], [facility] 3 14:33:57 Problem Notes None recorded. Procedures Surgical History Date Name Laterality Status Provider Name and Address Organization Details Recorded Time 7 Colonoscopy completed Jacquie Guy MA [facility] 01/07/2017 10:56:32 Imaging Results None recorded. Procedure Notes None recorded. Medical Equipment None Reported. Allergies Allergen ID Allergen Name Allergen Category Reaction Reaction Severity Criticality Documentation Date Start Date Code Code System Note Provider Name and Address Organization Details Recorded Time 76077 erenumab- aooe medicatio n Not available Not available Not available 03/07/2022 25767 14 RxNorm RICKEY Jacques [facility] 2 10:17:48 9097 No known allergy (situatio n) Not available Not available Not available Not available 11/30/20132011 92105 6003 SN[facility]ED [facility] 10:17:48 Medications Name Sig Start Date [...] e 20 mg tablet TAKE 2 TABLETS BY MOUTH ONCE DAILY FOR 5 DAYS. 03/23 completed Not Available Not Available Not Available [...] completed RECORDED 08/11/19 09 8:59AM BY ALIDA MCCULLOUGH MD, MEDICATI ON AUTO-ELIEZER CTIVATIO N; Not Available Not Available Not Available doxycycli ne monohydra te 100 mg tablet TAKE ONE TABLET BY MOUTH TWICE A DAY 03/20 completed Not Available Not Available Not Available lidocaine -prilocai ne 2.5 %-2.5 % topical cream APPLY DIRECTED . 03/10 completed Not Available Not Available Not Available amitripty line 25 mg tablet TAKE THREE TABLETS BY MOUTH AT BEDTIME 03/23 completed Not Available Not Available Not Available propranol ol ER 80 mg capsule,2 4 hr,extend ed release TAKE ONE CAPSULE BY MOUTH EVERY DAY 08/28 completed Not Available Not Available Not Available indometha alexsandra 50 mg capsule Take by oral route for 10 days. 03/07 completed Not Available Not Available Not Available propranol ol ER 120 mg capsule,2 4 hr,extend ed release TAKE ONE CAPSULE BY MOUTH EVERY DAY active Not Available [...] completed RECORDED 08/04/19 10 10:59AM BY ALIDA MCCULLOUGH MD, MEDICATI ON AUTO-ELIEZER CTIVATIO N; Not Available Not Available Not Available eletripta n 40 mg tablet TAKE 1 TABLET AT ONSET OF HEADACHE , IF NO RELIEF , MAY REPEAT 1 TABLET AFTER AT LEAST 2 HOURS. MAX 2 TABLETS IN 24 HOURS. active Not Available Not Available No t Available cyclobenz aprine 5 mg tablet TAKE TWO TABLETS BY MOUTH AT BEDTIME NEEDED FOR MUSCLE SPASM 03/15 completed Not Available Not Available Not Available rosuvasta tin 5 mg tablet TAKE ONE TABLET BY MOUTH DAILY AT BEDTIME active Not Available Not Available No t Available Boostrix Tdap 2.5 Lf unit-8 mcg-5 Lf/0.5 [...] gram-7.5 gram-2.69 1 gram oral powder packet 08/22 /2017 completed Not Available Not Available Not Available [...] TAKE ONE TABLET BY MOUTH EVERY DAY 03/23 completed Not Available Not Available Not Available Vitals Date Recorded Body height Body mass index (BMI) Body weight Oxygen saturation Heart rate Body temperature Systolic And Diastolic Provider Name and Address Organization Details Last Updated DateTime 5 182.25 cm 25.8 kg/m2 42819.3 6 g 100 % 63 /min 98.2 [degF] 118/66 mm[Hg] Jacquie Guy MA [facility] 5 13:14:38 Social History Question Answer Notes LastModified by Organizat ion Details LastModified Time Tobacco Smoking Status Never Smoker Sofia schaefer [facility] 05/02/2015 09:24:37 Is Blood Transfusion Acceptable In An Emergency? Yes Information not available 05/02/2015 What Is Your Level Of Caffeine Consumption? Moderate Coffee Information not available 05/02/2015 How Much Tobacco Do You Chew? None Information not available 05/02/2015 What Type Of Diet Are You Following? REGULAR Information not available 05/02/2015 Which Illicit Or Recreational Drugs Have You Used? None Information not available 03/07/2022 Live Alone Or [...] Or Greater Than 100 Degrees Fahrenheit? No [email or web address] Information not available 08/28/2020 Are You Or Anyone In Your Household A Health Care Provider Or Emergency Responder? No [email or web address] Information not available 08/28/2020 To The Best Of Your Knowledge Have You Been In Close Proximity To Any Individual Who Tested Positive For COVID-19? No [email or web address] Information not available 08/28/2020 Have You Recently Traveled To A COVID-19 High Risk Area Or Gathering In The Last 10 Days? No [email or web address] Information not available 08/28/2020 What Was The Date Of Your Most Recent Tobacco Screening? 03/23/2025 [email or web address] Information not available 03/23/2025 How Many Children Do You Have? 2 Daryl-20, Tanesha- 17 Information not available 05/02/2015 Do You Use [...] To Smoke? No Information not available 05/02/2015 How Much Tobacco Do You Smoke? No Information not available 05/02/2015 Do You Use Sunscreen Routinely? Yes Information not available 05/02/2015 How Many Years Have You Smoked Tobacco? 0 Information not available 03/07/2022 Sex: Unknown Functional Status Question Answer Note LastModified by Organizat ion Details LastModified Time What is your level of alcohol consumption? Occasional Information not available 05/02/2015 Do you or have you ever used smokeless tobacco? Never used smokeless tobacco Information not available 02/23/2019 Are you currently employed? No Information not available 03/07/2022 Are you able to walk independently without assistance or assistive devices? YESWOREST Information not available 03/07/2022 Are you able to care for yourself independently? 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 Never used electronic cigarettes Information not available 03/07/2022 What is your exercise level? Moderate Information not available 05/02/2015 Mental Status None recorded. Family History Relationship Description Onset Age of this Age Resolved Age Notes LastModified by Organization Details LastModified Time Mother Essential hypertension 77 Not available 10:08:44 Father Essential hypertension 78 [email or web address] Not available 10:08:44 Father B-cell lymphoma (clinical) Not available 09/2024 13:21:00 Sister Malignant neoplasm of ovary 27 [email or web address] Not available 10:05:59 Notes:No colon cancer/prosta te cancer. No early from [place] Medical History Condition Response Gout Y Headaches/Migraines Y Constipation Y Depression Y Chicken Pox Y Immunizations Vaccine Type Date Status Note Provider Nam e and Address Organization Details Recorded Time Influenza, split virus, trivalent, preservative 4 completed Lavonneabimael schaefer [facility] 02/14/2014 08:46:34 Influenza, split virus, trivalent, preservative 5 completed Lavonne Wheeler null, [facility] 02/13/2015 14:13:07 Tdap 5 [facility] 11:09:05 Pneumococcal conjugate PCV 13 7 completed [facility] 03/07/2022 10:31:36 zoster live 8 completed Veronique schaefer [facility] 11/05/2017 11:36:06 zoster recombinant 8 completed Gladis Levy [facility] 03/07/2022 10:31:36 COVID-19, mRNA, LNP-S, PF, 100 mcg/0.5mL dose or 50 mcg/0.25mL dose 1 completed [facility] 03/07/2022 10:31:36 COVID-19, mRNA, LNP-S, PF, 100 mcg/0.5mL dose or 50 mcg/0.25mL dose 1 completed Gladis Levy [facility] 03/07/2022 10:31:36 COVID-19, mRNA, LNP-S, PF, 100 mcg/0.5mL dose or 50 mcg/0.25mL dose 1 completed Not Available [facility] 09/16/2022 13:11:02 Influenza, MDCK, quadrivalent, PF 2 completed RICKEY Jacques, [facility] 03/07/2022 10:31:36 Influenza, MDCK, quadrivalent, PF 7 completed RICKEY Jacques, [facility] 03/07/2022 10:31:36 Influenza, MDCK, quadrivalent, PF 8 completed Gladis MiguelRICKEY Dela Cruz, [facility] 03/07/2022 10:31:36 Influenza, split virus, trivalent, preservative 6 completed Gladis Miguel RICKEY Levy, [facility] 03/07/2022 10:31:36 Influenza, split virus, trivalent, preservative 0 completed Gladis Miguel Coreymicheal RICKEY schaefer, [facility] 03/07/2022 10:31:36 Influenza, MDCK, quadrivalent, PF 1 completed Gladis Nicolemicheal RICKEY schaefer, [facility] 03/07/2022 10:31:36 zoster recombinant 8 completed Gladis Levy RICKEY schaefer, [facility] 03/07/2022 10:31:36 Influenza, MDCK, quadrivalent, PF 9 completed Gladis Migueldoris Levy RICKEY schaefer, [facility] 03/07/2022 10:31:36 Influenza, split virus, quadrivalent, PF 0 completed Gladis Miguel Nicolemicheal RICKEY schaefer, [facility] 03/07/2022 10:31:36 Influenza, split virus, quadrivalent, PF 3 completed Maria Elena Goldene BRAKE LINER null, [facility] 03/10/2023 08:43:16 COVID-19, mRNA, LNP-S, PF, 50 mcg/0.5 mL 5 completed Not Available [facility] 03/23/2025 13:07:33 Influenza, MDCK, trivalent, PF 4 completed Not Available [facility] 03/23/2025 13:07:33 Pneumococcal conjugate PCV21, polysaccharide [id number] conjugate, PF 5 completed Not Available [facility] 03/23/2025 13:07:33 Influenza, split virus, trivalent, PF 5 completed Not Available [facility] 03/23/2025 13:07:33 Td (adult), 2 Lf tetanus toxoid, preservative free, adsorbed 3 completed Not Available [facility] 11/30/2013 14:07:41 Influenza, split virus, trivalent, preservative 9 completed Not Available [facility] 11/30/2013 14:07:41 Influenza, split virus, trivalent, preservative 1 completed Not Available [facility] 11/30/2013 14:07:41 Influenza, split virus, trivalent, preservative 3 completed Not Available [facility] 11/30/2013 14:07:42 Past Encounters Encounter ID Performer Location Encounter Start Date Encounter Closed Date Diagnosis/Indication Diagnosis SNOMED-CT Code Diagnosis ICD10 Code Diagnosis IMO Codes Diagnosis Note [id number] Akin Torres MD Main Office [address] [place] [address] 03/23/2025 12:41:00 03/23/2025 15:20:58 Adult health examination 517623493 Z00.00 colon utd - next 8.27 Hyperlipidemia 41579719 E78.00 cont statin, recheck lipids Gout 65651838 M10.9 Stable with no recent flare up. Cont allopurino l - rec increase from qod to qd 11.25 - recheck uric acid Steatotic liver disease 864931915 K76.0 Brandon -- evidence of fatty liver [...] nl ggtp last yr, recheck cmp above 11.25 - Hector - mildly elevated glucose but you have a normal A1c - no evidence of pre-diabet es. bilirubin & ALT stable -- recheck above Migraine 02922447 G43.90 9 Continues to have 3-4 a week. Cont to f/u with neurology, had 3 Botox treatment - no sig change, pending results of sleep study10.24 - fairly stable lately, cont meds as dir - ? results of sleep study - not mentioned in last neuro note - will attempt to get results 11.25 - stable, cont meds as dir, cont f/u c neuro q 3 months - next 12.25 Nocturia 875537565 R35.1 No family history. With shared decision making pt would like to get screened. Vitamin D deficiency 347 09461 E55.9 Takes vitamin D supplement s daily. Recheck labs. Orthostati c hypotension 87585935 I95.1 3436 on occasion - cont drink plenty of waterlikel y d/t either amitriptyl ine and / or propanolol - rec f/u c neuro Health Concerns Section Related Observation LastModified by Organization Detai ls LastModified Time None Recorded Concern Status LastModified by Organization Details LastModified Time None Recorded Payers Encounter Date Sequence Insurance Name Policy Number Policy Stevenson Covered Member ID Stevenson Member ID Guarantor Name 03/23/2025 1 [facility] [id number] Imani Santillan [id number] Brandon Santillan Jr 03/23/2025 2 [place]: [employer] Brandon Santillan Jr [id number] Brandon Santillan Jr Notes Date Note Type Note Provider Name and Address Organization Details Recorded Time 03/23/2025 text/html Generic HPI TemplateReported by Patient here for annual pe. Anson Olivera PA-C [id number] [id number], [place], [id number], [facility] 03/23/2025 13:56:03
--- OUTSIDE RECORDS SUMMARY | 2025-04-19 07:55 | XMS_ITS | Data Portability ---
Author Organization [facility], Main Office Address [address] [place] [address] Care Team Providers Care Senior Enlisted Advisor Name Role Phone JANET CAMPOS Molder Meat CATALINA GUZMAN OTHER RACHNA OLIVERA Primary Care Provider [phone] Assessment No assessment recorded. Plan of Treatment Reminders Order Date Submit Date Provider Last Modified By Organization Details Last Modified Time Details Appointments None record ed. Lab uric acid, serum or plasma 2024 025 DIANNE [facility], [address] [address], [place], [address], 08:07:05 vitami n D, 25-hyd maria g, total, serum 2024 025 DIANNE [facility], [address], [place], [address], 5 08:07:05 PSA, total, serum or plasma 2024 025 DIANNE [facility] (Centralized Electronic Ordering - All Locations), Patient Can Go To The Location Of Their Choice, [address] 08:07:05 lipid panel, serum 2024 025 DIANNE [facility] (Centralized Electronic Ordering - All Locations), Patient Can Go To The Location Of Their Choice, [address] 08:07:04 CMP, serum or plasma 2024 025 DAINNE [facility] (Centralized Electronic Ordering - All Locations), Patient Can Go To The Location Of Their Choice, [address] 5 08:07:04 uric acid, serum or plasma 2023 024 DIANNE [facility], [address], [address], [place], [address], 15:43:53 CMP, serum or plasma 2023 024 DIAN[facility], [address], [address], [place], [address], 15:43:49 CBC w/ auto diff 2023 024 DIANNE [facility] (Centralized Electronic Ordering - All Locations), Patient Can Go To The Location Of Their Choice, [address] 15:43:48 lipid panel, serum 2023 024 DIANNE [facility] (Centralized Electronic Ordering - All Locations), Patient Can Go To The Location Of Their Choice, [address] 4 15:43:50 HbA1c (hemog lobin A1c), blood 2023 024 DIANNE [facility], [address], [address], [place], [address], 4 15:43:51 PSA, serum or plasma - Screen ing 2023 024 DIAN[facility], [address], [address], [place], [address], 4 15:43:50 uric acid, serum or plasma 2022 023 [facility]AN[facility], [address], [address], [place], [address], 3 14:08:00 gamma- glutam yl transf erase (ggt), serum 2022 023 [facility], [address], [address], [place], [address], 3 14:07:58 CMP, serum or plasma 2022 023 [facility], [address], [address], [place], [address], 3 14:07:56 HbA1c (hemog lobin A1c), blood 2022 023 [facility], [address], [address], [place], [address], 3 14:47:22 PSA, serum or plasma - Screen ing 2022 023 [facility], [address], [address], [place], [address], 3 14:36:04 uric acid, serum or plasma 2022 023 [facility], [address], [address], [place], [address], 3 17:35:56 hepati c functi on panel, serum 2022 023 [facility], [address], [address], [place], [address], 3 17:35:53 gamma- glutam yl transf erase (ggt), serum 2022 023 [facility], [address], [address], [place], [address], 3 17:35:52 uric acid, serum or plasma 2021 022 [facility], [address], [address], [place], [address], 2 20:23:32 lipid panel, serum 2021 022 [facility], [address], [address], [place], [address], 20:23:31 CMP, serum or plasma 2021 [facility], [address], [address], [place], [address], 20:23:30 CBC w/ auto diff 2021 [facility], [address], [address], [place], [address], 18:27:19 HbA1c (hemog lobin A1c), blood 2021 [facility], [address], [address], [place], [address], 21:05:01 vitami n D, 25-hyd maria g, total, serum 2021 [facility], [address], [address], [place], [address], 20:43:50 PSA, serum or plasma - Screen ing 2021 [facility], [address], [address], [place], [address], 20:43:49 Referral nutrit ionist /shawn gillespie referr al 2023 024 Not available 4 14:57:54 nutrit syist /shawn gillespie referr al 2022 023 tovae Not available 3 18:19:51 Procedures None record ed. Surgeries None record ed. Imaging None record ed. Medication Orders None record ed. Patient Targets Encounter Date Encounter Id Patient Goals Patient Target Last Modified By Organization Details Last Modified Time 03/07/2022 [id number] [facility] goal of Excess Body Weight Loss % 5 Not available Not available Not available Ongoing of LDL Direct yearly Not available Not available Not available Ongoing of LDL Direct <100 Not available Not available Not available 03/07/2022 [id number] Pt agrees to follow low fat diet, [...] updated/modified as needed to reflect progress toward goal. Pt advised and agrees to work on self-monitoring behaviors; begin an appropriate diet for weight loss (such as a low carbohydrate diet), to do moderate exercise (such as walking) for approximately 150 minutes per week; and to identify desirable and timely rewards that will reinforce achievement of specific weight loss goals. pmadden Not available 03/07/2022 11:35:12 03/10/2023 [id number] [facility] goal of Excess Body Weight Loss % 5 Not available Not available Not available 03/10/2023 [id number] Pt advised and agrees to work on self-monitoring behaviors; begin an appropriate diet for weight loss (such as a low carbohydrate diet), to do moderate exercise (such as walking) for approximately 150 minutes per week; and to identify desirable and timely rewards that will reinforce achievement of specific weight loss goals. 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 Pt advised and agrees to work on [...] By Organization Details Last Modified Time 03/07/2022 [id number] A healthy lifestyle: care instructions pmadden Not available 03/07/2022 11:36:49 Well Visit 50 to 65: Care Instructions pmadden Not available 03/07/2022 11:36:49 Prostate Cancer Screening pmadden Not available 03/07/2022 11:36:49 Starting a Weight-Loss Plan: Care Instructions pmadden Not available 03/07/2022 11:36:49 Medications (OTC , herbal therapies, supplements) reviewed and reconciled with patient and or caregiver, including potential side effects, drug interactions, instructions, and the consequences of not taking medication. Reviewed potential barriers to medication adherence, such as side effects from medication or cost of medication. pmadden Not available 03/07/2022 11:35:21 09/16/2022 [id number] Medications (OTC , herbal therapies, supplements) reviewed and reconciled with patient and or caregiver, including potential side effects, drug interactions, instructions, and the consequences of not taking medication. Reviewed potential barriers to medication adherence, such as side effects from medication or cost of medication. pmadden Not available 09/16/2022 13:56:12 03/10/2023 [id number] A healthy lifestyle: care instructions pmadden Not available 03/10/2023 09:29:36 Well Visit 50 to 65: Care Instructions pmadden Not available 03/10/2023 09:29:36 Prostate Cancer Screening pmadden Not available 03/10/2023 09:29:36 Starting a Weight-Loss Plan: Care Instructions pmadden Not available 03/10/2023 09:29:36 Medications (OTC , herbal therapies, supplements) reviewed and reconciled with patient and or caregiver, including potential side effects, drug interactions, instructions, and the consequences of not taking medication. Reviewed potential barriers to medication adherence, such as side effects from medication or cost of medication. pmadden Not available 03/10/2023 09:13:53 03/15/2024 [id number] A healthy lifestyle: care instructions pmadden Not available 03/15/2024 10:37:04 Well Visit 50 to 65: Care Instructions pmadden Not available 03/15/2024 10:37:04 Prostate Cancer Screening pmadden Not available 03/15/2024 10:37:05 Starting a Weight-Loss Plan: Care Instructions pmadden Not available 03/15/2024 10:37:04 Medications (OTC , herbal therapies, supplements) reviewed and reconciled with patient and or caregiver, including potential side effects, drug interactions, instructions, and the consequences of not taking medication. Reviewed potential barriers to medication adherence, such as side effects from medication or cost of medication. 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 for Body mass index 30+ - obesity Referring Physician: Rachna Olivera, Internal Medicine, Encounter Date: 03/15/2024 Results Created Date Observation Date Name Description Value Unit Range Abnormal Flag Note LastModifiedBy Organization Detail LastModifiedTime 03/07/2003/07/2022 COMPL ETE BLOOD COUNT WBC 7.3 K/mm3 (4.0-1 1.0) Not Available [facility] (Centralized Electronic Ordering - All Locations) Patient Can Go To The Location Of Their Choice, [id number] 03/07/2022 18:27:19 03/07/2003/07/2022 COMPL ETE BLOOD COUNT RBC 5.06 M/mm3 (4.70- 6.10) Not Available [facility] (Centralized Electronic Ordering - All Locations) Patient Can Go To The Location Of Their Choice, 03/07/2022 18:27:19 03/07/2003/07/2022 COMPL ETE BLOOD COUNT HGB 15.1 gm/dL (13.7- 17.1) Not Available [facility] (Centralized Electronic Ordering - All Locations) Patient Can Go To The Location Of Their Choice, 03/07/2022 18:27:03/07/2003/07/2022 COMPL ETE BLOOD COUNT HCT 45.6 % (40.5- 50.0) Not Available [facility] (Centralized [facility] Ordering - All Locations) Patient Can Go To The Location Of Their Choice, 03/07/2022 18:27:03/07/2003/07/2022 COMPL ETE BLOOD COUNT MCV 90.1 fL (80.0- 94.0) Not Available [facility] (Centralized [facility] Ordering - All Locations) Patient Can Go To The Location Of Their Choice, 03/07/2022 18:27:03/07/2003/07/2022 COMPL ETE BLOOD COUNT MCH 29.8 pg (27.0- 34.0) Not Available [facility] ([facility]ized [facility] Ordering - All Locations) Patient Can Go To The Location Of Their Choice, 03/07/2022 18:27:03/07/2003/07/2022 COMPL ETE BLOOD COUNT MCHC 33.1 g/dL (33.0- 37.0) Not Available [facility] ([facility] Ordering - All Locations) Patient Can Go To The Location Of Their Choice, 03/07/2022 18:27:03/07/2003/07/2022 COMPL ETE BLOOD COUNT plt 210 K/mm3 (150-4 60) Not Available [facility] ([facility]ized [facility] Ordering - All Locations) Patient Can Go To The Location Of Their Choice, 03/07/2022 18:27:19 03/07/2003/07/2022 COMPL ETE BLOOD COUNT RDW-SD 43.8 fL (<47.0 ) Not Available [facility] ([facility]ized [facility] Ordering - All Locations) Patient Can Go To The Location Of Their Choice, 03/07/2022 18:27:19 03/07/20 22 03/07/2022 COMPL ETE BLOOD COUNT MPV 10.7 fL (9.4-1 2.4) Not Available [facility] ([facility]ized [facility] Ordering - All Locations) Patient Can Go To The Location Of Their Choice, 03/07/2022 18:27:19 03/07/20 22 03/07/2022 COMPL ETE BLOOD COUNT automated NRBC 0.0 #/100 _WBC' s Not Available [facility] (Centralized [facility] Ordering - All Locations) Patient Can Go To The Location Of Their Choice, 03/07/2022 18:27:19 03/07/20 22 03/07/2022 COMPL ETE BLOOD COUNT abs. NRBC 0.0 [...] Their Choice, 03/07/2022 20:23:30 03/07/2003/07/2022 COMPR EHENS ALURIE METAB OLIC PANL chloride 100 mmol/ L [...] The Location Of Their Choice, 03/07/2022 20:23:30 10/20/20 22 03/07/2022 COMPR EHENS LAURIE METAB OLIC [...] 03/07/2003/07/2022 COMPR EHENS LAURIE METAB OLIC PANL alk [...] TEST PERFO RMED USING THE EMMETT ELECT EMMETT MILLU MINES CENCE TOTAL PSA ASSAY . [...] Go To The Location Of Their Choice, [id number] 03/07/2022 20:43:50 03/07/20 22 03/07/2022 HEMOG LOBIN A1C hemoglobin A1C 5.2 % [...] of Clini marybel and Appli ed Resea [facility] and Educa tion Volum e 43, Suppl ement 1 Not Available [facility] (Centralized Electronic Ordering - All Locations) Patient Can Go To The Location Of Their Choice, [id number] 03/07/2022 21:05:01 09/20/19 23 09/19/2022 GGTP ggtp 46 U/L (8-61) Not Available [facility] (Centralized [facility] Ordering - All Locations) Patient Can Go To The Location Of Their Choice, [id number] 09/19/2022 17:35:51 09/20/19 23 09/19/2022 HEPAT IC FUNCT ION PANEL bilirubin,to haroldo [...] 03/25/2003/25/2023 COMPR EHENS LAURIE METAB OLIC PANL total [...] Go To The Location Of Their Choice, [id number] 03/25/2023 14:07:56 03/25/2003/25/2023 COMPR EHENS LAURIE METAB [...] Go To The Location Of Their Choice, [address] 03/25/2023 14:07:56 03/25/2003/25/2023 GGTP ggtp 54 U/L (8-61) Not Available [facility] ([facility] Ordering - All Locations) Patient Can Go To The Location Of Their Choice, [id number] 03/25/2023 14:07:58 03/25/2003/25/2023 URIC ACID uric acid 6.9 mg/dL (2.6-8 .7) Not Available [facility] ([facility] Ordering - All Locations) Patient Can Go To The Location Of Their Choice, [address] 03/25/2023 14:07:59 03/25/2003/25/2023 PSA SCREE N PSA 0.5 NG/mL (0-4) TEST PERFO RMED USING THE EMMETT ELECT EMMETT MILLU MINES CENCE TOTAL PSA ASSAY . PSA VALUE S OBTAI SYLVIA WITH OTHER ASSAY METHO DS OR KITS CANNO T BE USED INTER ENRIQUEZ EABLY . Not Available [facility] ([facility]ized [facility] Ordering - All Locations) Patient Can Go To The Location Of Their Choice, [id number] 03/25/2023 14:36:04 03/25/2003/25/2023 HEMOG LOBIN A1C hemoglobin [...] of Clini marybel and Appli ed Resea [facility] and Educa tion Volum e 43, Suppl ement 1 Not Available [facility] ([facility] Ordering - All Locations) Patient Can Go To The Location Of Their Choice, [id number] 03/25/2023 14:47:22 03/15/2003/15/2024 CBC WITH DIFFE RENTI AL/PL ATELE T WBC 6.4 x10e3 /uL 3.4-10 .8 normal Not Available [facility] ([place] [facility]) [address] [place], [address], 03/23/2024 15:43:47 03/15/20 24 03/15/2024 CBC WITH DIFFE RENTI AL/PL ATELE T RBC 4.79 x10e6 /uL 4.14-5 .80 normal Not Available [facility] ([place] [facility]) [address] [place], [address], 03/23/2024 15:43:47 03/15/20 24 03/15/2024 CBC WITH DIFFE RENTI AL/PL ATELE T hemoglobin 14.6 g/dL 13.0-1 7.7 normal Not Available [facility] ([facility]) [address] [facility], [place], [address], 03/23/2024 15:43:47 03/15/2003/15/2024 CBC WITH DIFFE RENTI AL/PL ATELE T hematocrit 43.4 % 37.5-5 1.0 normal Not Available [facility] ([facility]) [address] [facility], [place], [address], 03/23/2024 15:43:47 03/15/2003/15/2024 CBC WITH DIFFE RENTI AL/PL ATELE T MCV 91 fL 79-97 normal Not Available [facility] ([facility]) [address] [facility], [place], [address], 03/23/2024 15:43:47 03/15/2003/15/2024 CBC WITH DIFFE RENTI AL/PL ATELE T MCH 30.5 pg 26.6-3 3.0 normal Not Available [facility] ([facility]) [address] [place], [address], 03/23/2024 15:43:47 03/15/2003/15/2024 CBC WITH DIFFE RENTI AL/PL ATELE T MCHC 33.6 g/dL 31.5-3 5.7 normal Not Available [facility] ([facility]) [address] [place], [address], 03/23/2024 15:43:47 03/15/2003/15/2024 CBC WITH DIFFE RENTI AL/PL ATELE T RDW 12.6 % 11.6-1 5.4 Not Available [facility] ([facility]) [address] [place], [address], 03/23/2024 15:43:47 03/15/20 24 03/15/2024 CBC WITH DIFFE RENTI AL/PL ATELE T platelets 160 x10e3 /uL 150-45 0 normal Not Available [facility] ([facility]) [address] [facility], [place], [address], 03/23/2024 15:43:47 03/15/2003/15/2024 CBC WITH DIFFE RENTI AL/PL ATELE T neutrophils 58 % not estab. normal Not Available [facility] ([facility]) [address] [facility], [place], [address], 03/23/2024 15:43:47 03/15/2003/15/2024 CBC WITH DIFFE RENTI AL/PL ATELE T lymphs 30 % not estab. normal Not Available [facility] ([facility]) [address] [facility], [place], [address], 03/23/2024 15:43:47 03/15/20 24 03/15/2024 CBC WITH DIFFE RENTI AL/PL ATELE T monocytes 8 % not estab. normal Not Available [facility] ([facility]) [address] [facility], [place], [address], 03/23/2024 15:43:47 03/15/20 24 03/15/2024 CBC WITH DIFFE RENTI AL/PL ATELE T eos 3 % not estab. normal Not Available [facility] ([facility]) [address] [facility], [place], [address], 03/23/2024 15:43:47 03/15/2003/15/2024 CBC WITH DIFFE RENTI AL/PL ATELE T basos 1 % not estab. 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 0 normal Not Available [facility] ([facility]) [address] [place], [address], 03/23/2024 15:43:47 03/15/20 24 03/15/2024 CBC WITH DIFFE RENTI AL/PL ATELE T lymphs (absolute) 1.9 x10e3 /uL 0.7-3. 1 normal Not Available [facility] ([facility]) [address] [place], [address], 03/23/2024 15:43:47 03/15/20 24 03/15/2024 CBC WITH DIFFE RENTI AL/PL ATELE T monocytes(ab solute) 0.5 x10e3 /uL 0.1-0. 9 normal Not Available [facility] ([facility]) [address] [place], [address], 03/23/2024 15:43:47 03/15/20 24 03/15/2024 CBC WITH DIFFE RENTI AL/PL ATELE T eos (absolute) 0.2 x10e3 /uL 0.0-0. 4 normal Not Available [facility] ([facility]) [address] [place], [address], 03/23/2024 15:43:47 03/15/20 24 03/15/2024 CBC WITH DIFFE RENTI AL/PL ATELE T baso (absolute) 0.1 x10e3 /uL 0.0-0. 2 normal Not Available [facility] ([facility]) [address] [place], [address], 03/23/2024 15:43:47 03/15/20 24 03/15/2024 CBC WITH DIFFE RENTI AL/PL ATELE T immature granulocytes 0 % not estab. Not Available [facility] ([facility]) [address] [facility], [place], [address], 03/23/2024 15:43:47 03/15/2003/15/2024 CBC WITH DIFFE RENTI AL/PL ATELE T immature grans (abs) 0.0 x10e3 /uL 0.0-0. 1 Not Available [facility] ([facility]) [address] [facility], [place], [address], 03/23/2024 15:43:47 03/15/2003/15/2024 CBC WITH DIFFE RENTI AL/PL ATELE T NRBC AIRCRAFT ENGINE MECHANIC Not Available [facility] ([facility]) [address] [facility], [place], [address], 03/23/2024 15:43:47 03/15/2003/15/2024 CBC WITH DIFFE RENTI AL/PL ATELE T hematology comments: AIRCRAFT ENGINE MECHANIC Not Available [facility] ([facility]) [address] [facility], [place], [address], 03/23/2024 15:43:47 03/15/2003/16/2024 COMP. METAB OLIC PANEL (14) glucose 102 mg/dL 70-99 above high normal Not Available [facility] ([facility]) [address] [facility], [place], [address], 03/23/2024 15:43:49 03/15/20 24 03/16/2024 COMP. METAB OLIC PANEL (14) BUN 9 mg/dL 6-24 normal Not Available [facility] ([facility]) [address] [facility], [place], [address], 03/23/2024 15:43:49 03/15/20 24 03/16/2024 COMP. METAB OLIC PANEL (14) creatinine 1.13 mg/dL 0.76-1 .27 normal Not Available [facility] ([facility]) [address] [facility], [place], [address], 03/23/2024 15:43:49 03/15/20 24 03/16/2024 COMP. METAB OLIC PANEL (14) eGFR 76 mL/mi n/1.7 3 >59 normal Not Available [facility] ([facility]) [address] [facility], [place], [address], 03/23/2024 15:43:49 03/15/20 24 03/16/2024 COMP. METAB OLIC PANEL (14) BUN/creatini ne ratio 8 9-20 below low normal Not Available [facility] ([facility]) [address] [facility], [place], [address], 03/23/2024 15:43:49 03/15/20 24 03/16/2024 COMP. METAB OLIC PANEL (14) sodium 141 mmol/ L 134-14 4 normal Not Available [facility] ([facility]) [address] [facility], [place], [address], 03/23/2024 15:43:49 03/15/20 24 03/16/2024 COMP. METAB OLIC PANEL (14) potassium 4.9 mmol/ L 3.5-5. 2 normal Not Available [facility] ([facility]) [address] [facility], [place], [address], 03/23/2024 15:43:49 03/15/20 24 03/16/2024 COMP. METAB OLIC PANEL (14) chloride 103 mmol/ L 96-106 normal Not Available [facility] ([facility]) [address] [facility], [place], [address], 03/23/2024 15:43:49 03/15/20 24 03/16/2024 COMP. METAB OLIC PANEL (14) carbon dioxide, total 23 mmol/ L 20-29 normal Not Available [facility] ([facility]) [address] [facility], [place], [address], 03/23/2024 15:43:49 03/15/20 24 03/16/2024 COMP. METAB OLIC PANEL (14) calcium 9.9 mg/dL 8.7-10 .2 normal Not Available [facility] ([facility]) [address] [place], [address], 03/23/2024 15:43:49 03/15/20 24 03/16/2024 COMP. METAB OLIC PANEL (14) protein, total 6.9 g/dL 6.0-8. 5 normal Not Available [facility] ([facility]) [address] [place], [address], 03/23/2024 15:43:49 03/15/2003/16/2024 COMP. METAB OLIC PANEL (14) albumin 4.6 g/dL 3.8-4. 9 normal Not Available [facility] ([facility]) [address] [place], [address], 03/23/2024 15:43:49 03/15/20 24 03/16/2024 COMP. METAB OLIC PANEL (14) globulin, total 2.3 g/dL 1.5-4. 5 Not Available [facility] ([facility]) [address] [place], [address], 03/23/2024 15:43:49 03/15/20 24 03/16/2024 COMP. METAB OLIC PANEL (14) bilirubin, total 2.9 mg/dL 0.0-1. 2 above high normal Not Available [facility] ([facility]) [address] [place], [address], 03/23/2024 15:43:49 03/15/20 24 03/16/2024 COMP. METAB OLIC PANEL (14) alkaline phosphatase 66 IU/L 44-121 normal Not Available [facility] ([facility]) [address] [place], [address], 03/23/2024 15:43:49 03/15/20 24 03/16/2024 COMP. METAB OLIC PANEL (14) AST (SGOT) 38 IU/L 0-40 normal Not Available [facility] ([facility]) [address] [facility] [place], [address], 03/23/2024 15:43:49 03/15/20 24 03/16/2024 COMP. METAB OLIC PANEL (14) ALT (SGPT) 88 IU/L 0-44 above high normal Not Available [facility] ([facility]) [address] [facility], [place], [address], 03/23/2024 15:43:49 03/15/20 24 03/16/2024 LIPID PANEL cholesterol, total 160 mg/dL 100-19 9 normal Not Available [facility] ([facility]) [address] [place], [address], 03/23/2024 15:43:50 03/15/2003/16/2024 LIPID PANEL triglyceride s 208 mg/dL 0-149 above high normal Not Available [facility] ([facility]) [address] [place], [address], 03/23/2024 15:43:50 03/15/20 24 03/16/2024 LIPID PANEL HDL cholesterol 38 mg/dL >39 below low normal Not Available [facility] ([facility]) [address] [facility], [place], [address], 03/23/2024 15:43:50 03/15/20 24 03/16/2024 LIPID PANEL VLDL cholesterol marybel 35 mg/dL 5-40 Not Available [facility] ([facility]) [address] [place], [address], 03/23/2024 15:43:50 03/15/20 24 03/16/2024 LIPID PANEL LDL [facility] 87 mg/dL 0-99 Not Available [facility] ([facility]) [address] [place], [address], 03/23/2024 15:43:50 03/15/2003/16/2024 LIPID PANEL LDL calc comment: AIRCRAFT ENGINE MECHANIC Not Available [facility] ([facility]) [address] [facility], [place], [address], 03/23/2024 15:43:50 03/15/20 24 03/23/2024 PROST ATE SPECI FIC ANTIG EN prostate specific antigen 0.450 NG/mL This PSA resul t was deter mined using the [employer] an chemi lumin ometr ic immun oassa y and value s obtai sylvia canno t be evalu ated inter enriquez eably with diffe rent assay metho ds or kits. This PSA resul t alone canno t be inter prete d as absol [place] evide nce of the prese nce or absen ce of disea se. Refer ence Range : >=40y : 97% of contr ols are <4.0. PSA level s have been repor allegra to corre late with prost ate size. Value s >4.0 are commo n in patie nts with prost atic hyper plasi a. Not Available [facility] [address] [facility], [place], [address], 03/23/2024 15:43:50 03/15/2003/15/2024 HEMOG LOBIN A1C hemoglobin A1C 5.4 % 4.8-5. 6 normal Predi abete s: 5.7 - 6.4 Diabe sharla: >6.4 Glyce duane contr ol for adult s with diabe sharla: <7.0 Not Available [facility] ([facility]) [address] [facility], [place], [address], 03/23/2024 15:43:51 03/15/20 24 03/16/2024 URIC ACID uric acid 7.4 mg/dL 3.8-8. 4 normal Thera peuti c targe t for gout patie nts: <6.0 Not Available [facility] ([facility]) [address] [facility], [place], [address], 03/23/2024 15:43:53 03/25/20 25 03/26/2025 CMP14 (REFL EX HGB A1C) glucose 98 mg/dL 70-99 normal Not Available [facility] ([facility]) [address] [place], [address], 03/26/2025 08:07:04 03/25/20 25 03/26/2025 CMP14 (REFL EX HGB A1C) BUN 17 mg/dL 6-24 normal Not Available [facility] ([facility]) [address] [place], [address], 03/26/2025 08:07:04 03/25/20 25 03/26/2025 CMP14 (REFL EX HGB A1C) creatinine 1.08 mg/dL 0.76-1 .27 normal Not Available [facility] ([facility]) [address] [place], [address], 03/26/2025 08:07:04 03/25/20 25 03/26/2025 CMP14 (REFL EX HGB A1C) eGFR 80 mL/mi n/1.7 3 >59 normal Not Available [facility] ([facility]) [address] [place], [address], 03/26/2025 08:07:04 03/25/20 25 03/26/2025 CMP14 (REFL EX HGB A1C) BUN/creatini ne ratio 16 9-20 normal Not Available [facility] ([facility]) [address] [place], [address], 03/26/2025 08:07:04 03/25/20 25 03/26/2025 CMP14 (REFL EX HGB A1C) sodium 144 mmol/ L 134-14 4 normal Not Available [facility] ([facility]) [address] [place], [address], 03/26/2025 08:07:04 03/25/20 25 03/26/2025 CMP14 (REFL EX HGB A1C) potassium 4.7 mmol/ L 3.5-5. 2 normal Not Available [facility] ([facility]) [address] [place], [address], 03/26/2025 08:07:04 03/25/20 25 03/26/2025 CMP14 (REFL EX HGB A1C) chloride 104 mmol/ L 96-106 normal Not Available [facility] ([facility]) [address] [facility], [place], [address], 03/26/2025 08:07:04 03/25/20 25 03/26/2025 CMP14 (REFL EX HGB A1C) carbon dioxide, total 27 mmol/ L 20-29 normal Not Available [facility] ([facility]) [address] [facility], [place], [address], 03/26/2025 08:07:04 03/25/20 25 03/26/2025 CMP14 (REFL EX HGB A1C) calcium 9.9 mg/dL 8.7-10 .2 normal Not Available [facility] ([facility]) [address] [place], [address], 03/26/2025 08:07:04 03/25/2003/26/2025 CMP14 (REFL EX HGB A1C) protein, total 6.8 g/dL 6.0-8. 5 normal Not Available [facility] ([facility]) [address] [place], [address], 03/26/2025 08:07:04 03/25/2003/26/2025 CMP14 (REFL EX HGB A1C) albumin 4.6 g/dL 3.8-4. 9 normal Not Available [facility] ([facility]) [address] [place], [address], 03/26/2025 08:07:04 03/25/20 25 03/26/2025 CMP14 (REFL EX HGB A1C) globulin, total 2.2 g/dL 1.5-4. 5 Not Available [facility] ([facility]) [address] [facility], [place], [address], 03/26/2025 08:07:04 03/25/20 25 03/26/2025 CMP14 (REFL EX HGB A1C) bilirubin, total 2.9 mg/dL 0.0-1. 2 above high normal Not Available [facility] ([facility]) [address] [facility], [place], [address], 03/26/2025 08:07:04 03/25/20 25 03/26/2025 CMP14 (REFL EX HGB A1C) alkaline phosphatase 50 IU/L 47-123 normal Not Available [facility] ([facility]) [address] [facility], [place], [address], 03/26/2025 08:07:04 03/25/20 25 03/26/2025 CMP14 (REFL EX HGB A1C) AST (SGOT) 18 IU/L 0-40 normal Not Available [facility] ([facility]) [address] [facility], [place], [address], 03/26/2025 08:07:04 03/25/2003/26/2025 CMP14 (REFL EX HGB A1C) ALT (SGPT) 19 IU/L 0-44 normal Not Available [facility] ([facility]) [address] [facility], [place], [address], 03/26/2025 08:07:04 03/25/20 25 03/26/2025 LIPID PANEL cholesterol, total 163 mg/dL 100-19 9 normal Not Available [facility] ([facility]) [address] [facility] [place], [address], 03/26/2025 08:07:04 03/25/20 25 03/26/2025 LIPID PANEL triglyceride s 95 mg/dL 0-149 normal Not Available [facility] ([facility]) [address] [facility], [place], [address], 03/26/2025 08:07:04 03/25/20 25 03/26/2025 LIPID PANEL HDL cholesterol 43 mg/dL >39 normal Not Available [facility] ([facility]) [address] [facility], [place], [address], 03/26/2025 08:07:04 03/25/20 25 03/26/2025 LIPID PANEL VLDL cholesterol marybel 18 mg/dL 5-40 Not Available [facility] ([facility]) [address] [facility], [place], [address], 03/26/2025 08:07:04 03/25/20 25 03/26/2025 LIPID PANEL LDL [facility] 102 mg/dL 0-99 above high normal Not Available [facility] ([facility]) [address] [facility], [place], [address], 03/26/2025 08:07:04 03/25/20 25 03/26/2025 LIPID PANEL LDL calc comment: [employer] Not Available [facility] ([facility]) [address] [facility], [place], [address], 03/26/2025 08:07:04 03/25/20 25 03/26/2025 PROST ATE-S PECIF IC AG prostate specific Ag 0.5 NG/mL 0.0-4. 0 normal Emmett ECLIA metho dolog y. Accor ding to [...] t be inter prete d as absol [place] evide nce of the prese nce or absen ce of malig nant disea se. Not Available [facility] ([facility]) [address] [facility], [place], [address], 03/26/2025 08:07:05 03/25/20 25 03/26/2025 VITAM IN D, 25-HY DROXY vitamin D, [...] 1. IOM (Inst itute of Medic ine). 2010. Dieta ry refer ence intelizabeth es for calci um and D. Helio kunz [place]: [facility] [employer] . 2. Lenard hong MF, Trav hatch [place], Kathleen off-F errar i SALCEDO, et al. Evalu ation , treat ment, and preve ntion of vitam in D defic iency : an Endoc rine Socie ty clini marybel pract ice guide line. JCEM. 2010; 96(7) :1911 -30. Not Available [facility] ([facility]) [address] [facility], [place], [address], 03/26/2025 08:07:05 03/25/20 25 03/26/2025 URIC ACID uric acid 6.3 mg/dL 3.8-8. 4 normal Thera peuti c targe t for gout patie nts: <6.0 Not Available [facility] ([facility]) [address] [facility], [place], [address], 03/26/2025 08:07:05 03/25/20 22 03/25/2022 US, liver US Liver [...] Mobile gallst ones noted. IMPRES KATINA: Echoge lusi liver likely repres enting hepati c steato sis. No suspic ious lesion . Cholel ithias is. WSN: [id number] Orderi ng Physic mark: Cristiano MENA, Neil Fraire Dictat ed By: Calvin De La Cruz MD Dictat ed Date/T shannan: 8:42 am Review ed By: Calvin De La Cruz MD Signed By: Calvin De La Cruz MD Signed Date/T shannan: 8:42 am Transc ribed By: RONY Transc ribed Date/T shannan: 8:24 am Patien t Class: Outpat ient [facility] (Outpt Imaging) [address] [place] [address], [place], [address], 09/16/2022 13:51:31 Result Notes None recorded. Problems Name Problem SNOMED Code Status Onset Date Resolution Date Notes Provider Name and Address Organization Details Recorded Time Liver function tests outside referenc e range 189790257 Completed 200812/07/2013 IMPRESSI ON: GILBERT' S DISEASE, ELEV BILI; RECORDED 01/18/20 09 8:15AM BY DEMI RODRIGUEZ ON/SHERLY schaefer [facility] 5 09:43:36 Orchitis and epididym itis 350836294 Completed 200812/07/2013 RECORDED 01/18/20 09 8:15AM BY DEMI RODRIGUEZ ON/SHERLY schaefer [facility] 5 09:43:36 Adult health examinat ion Completed 200812/07/2013 RECORDED 01/18/20 09 8:15AM BY DEMI RODRIGUEZ ON/ADDEN DUM Magui schaefer, [facility] 7 10:49:24 Liver function tests outside referenc e range 655530845 Completed 200812/27/2013 IMPRESSI ON: GILBERT' S DISEASE, ELEV BILI; RECORDED 01/18/20 09 8:15AM BY DEMI RODRIGUEZ ON/ADDEN DUM Alida schaefer [facility] 5 09:43:36 Orchitis and epididym itis 494271172 Completed 200812/27/2013 RECORDED 01/18/20 09 8:15AM BY DEMI RODRIGUEZ ON/ADDEN DUM Alida schaefer [facility] 5 09:43:36 Influenz a vaccine needed 40054603106 06 Completed 200812/07/2013 RECORDED 02/05/20 09 11:11AM BY DENA REED MA, NURSE VISIT Alida schaefer [facility] 5 09:43:36 Influenz a vaccine needed 35787149036 06 Completed 200812/27/2013 RECORDED 02/05/20 09 11:11AM BY DENA REED MA, NURSE VISIT Alida schaefer [facility] 5 09:43:36 Allergic rhinitis 52367349 Completed 201107/15/2016 RECORDED 05/21/19 12 9:25AM BY RICKEY JIMÉNEZ, OFFICE VISIT Magui schaefer [facility] 7 10:49:29 Hyperlip idemia 48640708 Active 2011 Magui schaefer [facility] 7 13:02:39 Migraine 79994733 Active 2011 Magui schaefer [facility] 7 13:02:34 Primary thromboc ytopenia 125865714 Completed 201102/23/2019 Removal Reason: last cbc normal 10.18 Rachna Cristiano ROCHE [address], [place], [address], [facility] 9 10:10:41 Adult health examinat ion Completed 201107/15/2016 RECORDED 05/21/19 12 9:38AM BY RICKEY JIMÉNEZ, OFFICE VISIT Magui schaefer, [facility] 7 10:49:24 Disorder s of bilirsalma n rereo n 379527963 Completed 201202/17/2018 Rachna Olivera PA-C [address], [place], [address], [facility] 8 14:34:45 Abnormal liver function 53532732 Active 2016 Little Olivera PA-C [address], [place], [address], [facility] 7 13:52:09 Impaired fasting glycemia 830942323 Active 2016 a1c 4.6 Rachna Olivera PA-C [address], [place], [address], [facility] 8 14:35:34 Mixed hyperlip idemia 044343951 Active 2016 10. - ascvd risk is only 5.9% Rachna Olivera PA-C [address], [place], [address], [facility] 9 12:56:16 Gilbert' s syndrome 32160783 Active 2017 Rachna Olivera PA-C [address], [place], [address], [facility] 8 14:34:40 Gouty arthriti s of ankle and/or foot 579367089 Active 2017 Rachna Olivera PA-C [address], [place], [address], [facility] 8 14:41:36 Vitamin D deficien cy 68800705 Active 2017 Rachna Olivera PA-C [address], [place], [address], [facility] 8 19:11:43 Major depressi ve disorder 486085207 Completed 202003/15/2024 Rachna MENA-Leonard [address], [place], [address], [facility] 4 10:35:14 Gout 42708182 Active 2020 Little Olivera PA-C [address], [place], [address], [facility] 1 16:21:03 Body mass index 30+ - obesity 589135996 Active 2021 [facility] 2 11:10:31 Steatoti c liver disease 040768510 Active 2022 Rachna Olivera PA-C [address], [place], [address], [facility] 3 14:33:57 Problem Notes None recorded. Procedures Surgical History Date Name Laterality Status Provider Name and Address Organization Details Recorded Time 7 Colonoscopy completed Jacquie Guy MA [facility] 01/07/2017 10:56:32 Imaging Results None recorded. Procedure Notes None recorded. Medical Equipment None Reported. Allergies Allergen ID Allergen Name Allergen Category Reaction Reaction Severity Criticality Documentation Date Start Date Code Code System Note Provider Name and Address Organization Details Recorded Time 81887 erenumab- aooe medicatio n Not available Not available Not available 03/07/2022 08321 14 RxNorm RICKEY Jacques [facility] 2 10:17:48 9097 No known allergy (situatio n) Not available Not available Not available Not available 11/30/20132011 48505 6003 SNOMED RICKEY Jacques [facility] 2 10:17:48 Medications Name Sig Start Date [...] Not Available Not Available Not Available Flucelvax 2554-3355 (PF) 45 mcg (15 mcg x 3)/0.5 mL IM syringe active Not Available Not Available Not Available Fluvirin 2120-0286 45 mcg (15 mcg x 3)/0.5 mL [...] (BMI) Body weight Heart rate Oxygen saturation Body temperature Systolic And Diastolic Provider Name and Address Organization Details Last Updated DateTime 3 182.25 cm 30.6 kg/m2 950522. 09 g 70 /min 96 % 98 [degF] 118/75 mm[Hg] Brenda Palm MA [facility] 3 13:16:15 Date Recorded Body height Body mass index (BMI) Body weight Heart rate Oxygen saturation Body temperature Systolic And Diastolic Provider Name and Address Organization Details Last Updated DateTime 2 182.25 cm 30 kg/m2 03141.3 2 g 68 /min 99 % 97.7 [degF] 135/80 mm[Hg] Gladis Levy [facility] 2 10:21:36 Date Recorded Body height Body mass index (BMI) Body weight Heart rate Oxygen saturation Body temperature Systolic And Diastolic Provider Name and Address Organization Details Last Updated DateTime 3 182.25 cm 30.4 kg/m2 092965. 91 g 60 /min 98 % 97.9 [degF] 115/75 mm[Hg] Maria Elena Richey LPN [facility] 3 08:42:55 Date Recorded Body height Body mass index (BMI) Body weight Heart rate Oxygen saturation Body temperature Systolic And Diastolic Provider Name and Address Organization Details Last Updated DateTime 4 182.25 cm 30.2 kg/m2 894331. 91 g 70 /min 99 % 98 [degF] 124/80 mm[Hg] Jessi Clark MA [facility] 4 09:47:01 Date Recorded Body height Body mass index (BMI) Body weight Oxygen saturation Heart rate Body temperature Systolic And Diastolic Provider Name and Address Organization Details Last Updated DateTime 5 182.25 cm 25.8 kg/m2 94567.3 6 g 100 % 63 /min 98.2 [degF] 118/66 mm[Hg] Jacquie Guy [facility] 5 13:14:38 Social History Question Answer Notes LastModified by Organizat ion Details LastModified Time Tobacco Smoking Status Never Smoker Sofia schaefer [facility] 05/02/2015 09:24:37 Is Blood Transfusion Acceptable In [...] Or Greater Than 100 Degrees Fahrenheit? No [email or web address] Information not available 08/28/2020 Are You Or Anyone In Your Household A Health Care Provider Or Emergency Responder? No [email or web address] Information not available 08/28/2020 To The Best Of Your Knowledge Have You Been In Close Proximity To Any Individual Who Tested Positive For COVID-19? No [email or web address] Information not available 08/28/2020 Have You Recently Traveled To A COVID-19 High Risk Area Or Gathering In The Last 10 Days? No [email or web address] Information not available 08/28/2020 What Was The Date Of Your Most Recent Tobacco Screening? 03/23/2025 [email or web address] Information not available 03/23/2025 How Many Children [...] used smokeless tobacco? Never used smokeless tobacco [email or web address] Information not available 02/23/2019 Are you currently [...] Details LastModified Time Mother Essential hypertension 77 [email or web address] Not available 10:08:44 Father Essential hypertension 78 [email or web address] Not available 10:08:44 Father B-cell lymphoma (clinical) [email or web address] Not available 09/2024 13:21:00 Sister Malignant neoplasm of ovary 27 [email or web address] Not available 10:05:59 Notes:No colon cancer/prosta te cancer. No early from [place] Medical History Condition Response Gout Y Headaches/Migraines Y Constipation Y Depression Y Chicken Pox Y Immunizations Vaccine Type Date Status Note Provider Forrest fraire and Address Organization Details Recorded Time Influenza, split virus, trivalent, preservative 4 completed Lavonne schaefer, [facility] 02/14/2014 08:46:34 Influenza, split virus, trivalent, preservative 5 completed Lavonne Wheeler null, [facility] 02/13/2015 14:13:07 Tdap 5 completed [facility] 05/16/2015 11:09:05 Pneumococcal conjugate PCV 13 7 completed [facility] 03/07/2022 10:31:36 zoster live 8 completed Veronique schaefer [facility] 11/05/2017 11:36:06 zoster recombinant 8 completed [facility] 03/07/2022 10:31:36 COVID-19, mRNA, LNP-S, PF, 100 mcg/0.5mL dose or 50 mcg/0.25mL dose 1 completed RICKEY Jacques [facility] 03/07/2022 10:31:36 COVID-19, mRNA, LNP-S, PF, 100 mcg/0.5mL dose or 50 mcg/0.25mL dose 1 completed RICKEY Jacques [facility] 03/07/2022 10:31:36 COVID-19, mRNA, LNP-S, PF, 100 mcg/0.5mL dose or 50 mcg/0.25mL dose 1 completed Not Available [facility] 09/16/2022 13:11:02 Influenza, MDCK, quadrivalent, PF 2 completed Gladis Levy RICKEY schaefer, [facility] 03/07/2022 10:31:36 Influenza, MDCK, quadrivalent, PF 7 completed Gladis Nicolemicheal RICKEY schaefer, [facility] 03/07/2022 10:31:36 Influenza, MDCK, quadrivalent, PF 8 completed Gladis Levy RICKEY schaefer, [facility] 03/07/2022 10:31:36 Influenza, split virus, trivalent, preservative 6 completed Gladisvamsi Levy RICKEY null, [facility] 03/07/2022 10:31:36 Influenza, split virus, trivalent, preservative 0 completed Gladis [facility] 03/07/2022 10:31:36 Influenza, MDCK, quadrivalent, PF 1 completed Gladis Levy RICKEY silvano, [facility] 03/07/2022 10:31:36 zoster recombinant 8 completed Gladis [facility] 03/07/2022 10:31:36 Influenza, MDCK, quadrivalent, PF 9 completed Gladis Levy [facility] 03/07/2022 10:31:36 Influenza, split virus, quadrivalent, PF 0 completed Gladis Levy [facility] 03/07/2022 10:31:36 Influenza, split virus, quadrivalent, PF 3 completed [facility] 03/10/2023 08:43:16 COVID-19, mRNA, LNP-S, PF, 50 mcg/0.5 mL 5 completed Not Available [facility] 03/23/2025 13:07:33 Influenza, MDCK, trivalent, PF 4 completed Not Available [facility] 03/23/2025 13:07:33 Pneumococcal conjugate PCV21, polysaccharide [id number] conjugate, PF 5 completed Not Available [facility] 03/23/2025 13:07:33 Influenza, split virus, trivalent, PF 5 completed Not Available [facility] 03/23/2025 13:07:33 Td (adult), 2 Lf tetanus toxoid, preservative free, adsorbed 3 completed Not Available [facility] 11/30/2013 14:07:41 Influenza, split virus, trivalent, preservative 9 completed Not Available [facility] 11/30/2013 14:07:41 Influenza, split virus, trivalent, preservative 1 completed Not Available [facility] 11/30/2013 14:07:41 Influenza, split virus, trivalent, preservative 3 completed Not Available [facility] 11/30/2013 14:07:42 Past Encounters Encounter ID Performer Location Encounter Start Date Encounter Closed Date Diagnosis/Indication Diagnosis SNOMED-CT Code Diagnosis ICD10 Code Diagnosis IMO Codes Diagnosis Note [id number] auto[facility]Comm erce [address] [facility] [place] [address] 10/28/2006 00:00:00 [id number] autoEComm erce [address] [facility] [place] [address] 04/14/2007 00:00:00 [id number] autoEComm erce [address] [facility] [place] [address] 06/03/2006 00:00:00 [id number] autoEComm erce [address] [facility] [place] [address] 01/26/2008 00:00:00 [id number] auto[facility]Comm erce [address] [facility] [place] [address] 11/01/2008 00:00:00 [id number] auto[facility]Comm erce [address] [facility] [place] [address] 12/20/2008 00:00:00 [id number] autoEComm erce [address] [facility] [address] [place] [address] 01/17/2009 00:00:00 [id number] [facility] [address] [facility] [address] [address] [place] [address] 05/21/2011 00:00:00 [id number] Alida paulson MD Main Office [address] [address] [place] [address] 05/02/2015 09:14:56 05/02/2015 10:29:37 Adult health examination 281618267 Z00.00 Hyperlipidemia 31706073 E78.5 based on ASCVD risk assessment pt is NOT in statin benefit grp w/ risk at 3.5% Administra tion of diphtheria, pertussis, and tetanus vaccine 344451137 Z23 [id number] Little Olivera PA-C Main Office [address] [address] [place] [address] 07/15/2016 10:22:32 07/15/2016 11:27:36 Gout 29554861 M10.9 Continue indomethac in 50 mg BID. Labs for metabolic work up as scheduled. Purine restricted diet recommende d. Hyperlipidemia 66753306 E78.5 Discussed low fat diet. Advised to increase exercise activity. Check lipids. Hyperglycemia 21142946 R 73.9 Elevated blood-pressure reading without diagnosis of hypertension 863130953 R03.0 Lower caffeine to 1 cup of coffee daily, continue low sodium diet. Check BP daily and return in 2-4 weeks. PE will be set up. Body mass index 25-29 - overweight 469630302 E66.3 Z68.25 [id number] Alida paulson MD Main Office [address] [address] [place] [address] 01/07/2017 12:58:44 01/07/2017 14:21:51 Adult health examination 102372206 Z00.00 Hyperlipidemia 73102749 E78.5 based on ASCVD risk assessment pt is NOT in statin benefit grp w/ risk at 3.5% Impaired f asting glycemia 179320816 R73.01 [id number] Rachna Olivera PA-C Main Office [address] [address] [place] [address] 02/17/2018 13:42:08 02/17/2018 14:51:47 Adult health examination 623649837 Z00.00 Hyperlipidemia 90382292 E78.00 based on ASCVD risk assessment pt is NOT in statin benefit grp w/ risk at 3.5% last year - will recheck Migraine 08415982 G43.90 9 pt typically uses excedrin migraine - reserves imitrex for rare use Body mass index 25-29 - overweight 769387015 E66.3 Z68.29 Inadequate immune status 601777244 Z23 Z28.3 pt needs this for work Gilbert's syndrome 03357 000 E80.4 known x yrs Gouty arth ritis of ankle and/or foot 181201900 M10.9 had recent flare last week (prior one yr ago) - better p indocin - will check uric acid level in a few wks [id number] Akin Torres MD Main Office [address] [place] [address] 11/03/2018 08:58:19 11/03/2018 09:53:39 Migraine 62714503 G43.909 increased freq of migraines past 1.5 months - will refill abortive imitrex and give trial of preventive topamax f/u 6 wks - if no sig improvemen t or worse then consider neuro eval 25 minute office visit with greater than 50% of the visit face-to-fa ce with the patient and/or family providing counseling and/or coordinati on of care. [id number] Akin Torres MD Main Office [address] [place] [address] 01/12/2019 10:19:34 01/12/2019 11:30:41 Migraine 20637460 G43.909 tried topamax - no sig help, [...] providing counseling and/or coordinati on of care. [id number] Blue Larsen MD Main Office [address] [place] [address] 02/23/2019 09:05:02 02/23/2019 10:36:34 Adult health examination 893766041 Z00.00 Migraine 99745314 G43.90 9 tried topamax - no sig help, in fact had SE of metallic taste so stopped med 2 wks ago -- cont prn excedrin migraine then triptan, pending neuro eval next wk - meanwhile cont increase trial of elavil h/o migraines ~ 10 yrs Mixed hyperlipidemia 267 114117 E78.2 Gilbert's syndrome 78741 000 E80.4 known x yrs - offered re-assuran ce Vitamin D deficiency 347 28814 E55.9 Gouty arth ritis of ankle and/or foot 257212441 M10.9 stable c no flares lately, uses prn indocin - requests refill Abnormal l iver function [id number] K76.89 elevated alt likely d/t mild fatty liver dz - will recheck Impaired f asting glycemia 402364111 R73.01 Body mass index 25-29 - overweight 240949354 E66.3 Z68.28 [id number] Akin Torres MD Main Office [address] [place] [address] 08/28/2020 09:48:59 08/28/2020 11:01:23 Adult health examination [id number] Z00.00 Chest pain 29527389 R07. 9 int over past few months, can happen at rest, not c exertion - will check ekg to r/o - ekg wn - offered reassuranc e Migraine 47733647 G43.90 9 cont meds, f/u c neuro Mixed hyperlipidemia 267 912562 E78.2 ? genetic - does not eat a lot of red meat Gilbert's syndrome 03323 000 E80.4 known x yrs - offered re-assuran ce Gouty arth ritis of ankle and/or foot [id number] M10.9 last flare ~ 2 mos. ago - better lately p resumed allopurino l Abnormal l iver function 48160391 K76.89 elevated alt likely d/t mild fatty liver dz - will recheck Impaired f asting glycemia 573203082 R73.01 Body mass index 25-29 - overweight 185220784 E66.3 Z68.29 Major depr essive disorder 343170031 F32.0 mild - ? 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 elavil (given by neuro for migraines) is help mdd - cont as dir Counseling [id number] Z71 .9 Referral for counseling with Suni / JIMBO Lucio. Please provide patient with contact info to schedule their appointmen t. #[phone] email: [email or web address] [id number] Little Olivera PA-C Main Office [address] [facility] [address] [facility] [place] [address] 10/04/2020 15:11:40 10/04/2020 16:21:18 Gout 70406587 M10.9 Gout flare up of left great toe and ankle Will refill indomethac in 50 mg TID with food. Purine restricted diet recommende d. Will check uric acid levels in 2-3 weeks after symptoms resolved. Consider increasing Allopurino l to 200 mg daily. [id number] Akin Torres MD Main Office [address] [facility] [address] [place] [place] [address] 03/07/2022 10:08:31 03/07/2022 11:40:02 Adult health examination 323631986 Z00.00 Recommende d to get COVID booster. Screening UTD. Repeat labs. Gout 22884375 M10.9 Stable with no recent flare up. Cont allopurino l. Hyperlipidemia 30181873 E78.00 based on ASCVD risk assessment pt is NOT on statin -- risk at 3.5% last year - will recheck labs. Pt does not eat a lot of red meat. ? genetics. Impaired f asting glycemia 430857087 R73.01 Recheck labs. Major depr essive disorder 689350706 F32.0 mild - ? related to stress [...] f/u with neurology. PHQ9 score 2. Migraine 45933717 G43.90 9 Continues to have 3-4 a week. Cont to f/u with neurology. Recently got approved for Botox treatment and has appt with neuro in March. Vitamin D deficiency 347 65122 E55.9 Takes vitamin D supplement s daily. Stable in 2019. Recheck labs. Gilbert's syndrome 69340 000 E80.4 known x yrs. Stable. Nocturia 484403682 R35.1 No family history. With shared decision making pt would like to get screened. Body mass index 30+ - obesity 240109330 Z68.30 E66.9 Cont daily exercise with walking. Admits to drinking beer throughout the week which has added to weight gain. Cont diet with lean protein and vegetables . [id number] Akin Torres MD Main Office [address] [place] [address] 09/16/2022 13:08:16 09/16/2022 14:11:15 Major depressive disorder 111041064 F32.0 mild - ? 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 elavil (given by neuro for migraines) is help mdd - cont as dir 10.20.2021 : Stable and related to migraines. Does not see a therapist. Recommende d to see a therapist if he feels inclined. Cont f/u with neurology. PHQ9 score 2. 5.23 - pt did well on elizabeth/phq - most anxious about his next migraine Body mass index 30+ - obesity 841259821 Z68.30 E66.9 Cont daily exercise with walking. Admits to drinking beer throughout the week which has added to weight gain. Cont diet with lean protein and vegetables . Hyperlipidemia 65553115 E78.00 cont statin, recheck lipids pending Gout 42713511 M10.9 Stable with no recent flare up. Cont allopurino l. Steatotic liver disease 876297680 K76.0 Brandon -- evidence of fatty liver [...] med which he takes fairly often Migraine 74126752 G43.90 9 Continues to have 3-4 a week. Cont to f/u with neurology, has had 1 Botox treatment- next 5.4. [id number] Akin Torres MD Main Office [address] [facility] [address] [place] [place] [address] 03/10/2023 08:30:36 03/10/2023 09:32:55 Adult health examination 213251218 Z00.00 Recommende d to get COVID booster. Screening UTD. Repeat labs. Major depr essive disorder 428970321 F32.0 mild - ? related to stress [...] elizabeth/phq Body mass index 30+ - obesity 855312864 Z68.30 E66.9 Cont daily exercise with walking. Admits to drinking beer throughout the week which has added to weight gain. Cont diet with lean protein and vegetables . Hyperlipidemia 43881667 E78.00 cont statin, recheck lipids pending Gout 84894325 M10.9 Stable with no recent flare up. Cont allopurino l - rec increase from qod to qd Steatotic liver disease 933214783 K76.0 Brandon -- evidence of fatty liver [...] med which he takes fairly often Migraine 52700328 G43.90 9 Continues to have 3-4 a week. Cont to f/u with neurology, had 3 Botox treatment - no sig change, pending results of sleep study Nocturia 874573980 R35.1 No family history. With shared decision making pt would like to get screened. Impaired f asting glycemia 531020917 R73.01 Recheck labs. [id number] Akin Torres MD Main Office [address] [facility] [address] [facility], [place] [address] 03/15/2024 09:40:22 03/15/2024 10:46:02 Adult health examination 269909848 Z00.00 Recommende d to get COVID booster. Screening UTD. Repeat labs. colon utd Body mass index 30+ - obesity 530934235 Z68.30 E66.9 Cont daily exercise with walking. Cont diet with lean protein and vegetables . Hyperlipidemia 90261033 E78.00 cont statin, recheck lipids Gout 84623801 M10.9 Stable with no recent flare up. Cont allopurino l - rec increase from qod to qd 10.24 - recheck uric acid Steatotic liver disease 266759630 K76.0 Brandon -- evidence of fatty liver [...] ggtp last yr, recheck cmp above Migraine 65133522 G43.90 9 Continues to have 3-4 a week. Cont to f/u with neurology, had 3 Botox treatment - no sig change, pending results of sleep study10.24 - fairly stable lately, cont meds as dir - ? results of sleep study - not mentioned in last neuro note - will attempt to get results Nocturia 164544825 R35.1 No family history. With shared decision making pt would like to get screened. Impaired f asting glycemia 021156777 R73.01 Recheck labs. [id number] Akin Torres MD Main Office [address] [place] [address] 03/23/2025 12:41:00 03/23/2025 15:20:58 Adult health examination 619595859 Z00.00 colon utd - next 8.27 Hyperlipidemia 85132459 E78.00 cont statin, recheck lipids Gout 25088232 M10.9 Stable with no recent flare up. Cont allopurino l - rec increase from qod to qd 11.25 - recheck uric acid Steatotic liver disease 788037374 K76.0 Brandon -- evidence of fatty liver [...] & ALT stable -- recheck above Migraine 01592220 G43.90 9 Continues to have 3-4 a [...] q 3 months - next 12.25 Nocturia 792240033 R35.1 No family history. With shared decision making pt would like to get screened. Vitamin D deficiency 347 87019 E55.9 Takes vitamin D supplement s daily. Recheck labs. Orthostati c hypotension 80482120 I95.1 3436 on occasion - cont drink plenty of waterlikel y d/t either amitriptyl ine and / or propanolol - rec f/u c neuro Health Concerns Section Related Observation LastModified by Organization Detai ls LastModified Time None Recorded Concern Status LastModified by Organization Details LastModified Time None Recorded Advance Directives Directive None Recorded Payers Insurance Date Sequence Insurance Name Policy Number Policy Stevenson Covered Member ID Stevenson Member ID Guarantor Name 03/23/2025 1 [place] [id number] Imani Santillan [id number] Brandon Santillan 03/23/2025 2 [place] [employer] Brandon Santillan [id number] Brandon Santillan 07/15/2016 1 [id number] Imani Santillan [id number] Brandon Valleandre [place] Notes Date Note Type Note Provider Name and Address Organization Details Recorded Time 03/07/2022 text/html Generic HPI TemplateReported by Patient 56yo male presents for annual PE.Overall feels well.Colonoscopy done in 2016. Repeat in 2026.Vaccines UTD.No past PSA screen. No family history of prostate cancer. Rachna Olivera PA-C [address] [address], [place], [address], [facility] 03/07/2022 13:22:01 09/16/2022 text/html Anxiety/Depressi onRepo rted by PatientHPIFor quality, patient reportssymptoms improved. For severity, patient reportsdenies suicidal ideations. For context, patient reportsno major life stressors (x migraines). For associated symptoms, patient reportsdenies homicidal ideations. Rachna Olivera PA-C [address] [address], [place], [address], [facility] 09/16/2022 14:35:23 03/10/2023 text/html Generic HPI TemplateReported by Patient here for annual pe. Rachna Olivera PA-C [address] [address], [place], [address], [facility] 03/10/2023 09:32:45 03/15/2024 text/html Generic HPI TemplateReported by Patient here for annual pe. Rachna Olivera PA-C [address] [address], [place], [address], [facility] 03/15/2024 10:44:03 03/23/2025 text/html Generic HPI TemplateReported by Patient here for annual pe. Rachna Olivera PA-C [address] [facility] [place] [address], [place], [address], [facility] 03/23/2025 13:56:03
--- NOTE | 2025-04-19 08:08 | A.OFFVIS_ITS ---
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 Pt denies any significant interval medical changes, other than an intentional weight loss through exercise- at a local small group fitness gym. He has been noticing dizziness with getting up, especially when getting up from a plank He denies orthostatic lightheadedness Notes that he maybe drinks 40 oz of fluid per day. Has meclizine if needed, but has not needed to take it recently. Previously did vestibular PT. He is still having 3-4 migraine days per week. He is now using Eletriptan at onset of migraine, as he is receiving sufficient supply through [facility]. Also using the HEAeyes vibrating eye mask, which is very helpful. He finds that applying ice to deep inner buccal region is also helpful. He is still photophobic, and plans to look into purchasing FL-41 blue light blocking glasses. The acetazolamide continues to be helpful to prevent post-flight migraine attack. [facility] Medical History (Updated 04/19/25 @ 09:01 by SARA Montalvo) Migraine with aura, intractable, without status migrainosus Snoring Family History Sister Cancer Social History Alcohol intake: current Alcohol intake frequency: a few times a week Patient Tobacco Use Status: Never used Tobacco Physical Exam Vital Signs: Last Vital Signs Pulse 55 04/19/25 08:09 BP 118/80 04/19/25 08:09 Pulse Ox 99 04/19/25 08:09 Oxygen Delivery Method Room Air 04/19/25 08:09 BMI result Body Mass Index 25.9 Const General: cooperative and no acute distress Orientation/consciousness: patient oriented x3 Resp Effort & Inspection: normal respiratory effort and able to speak in complete sentences Neuro General: patient oriented x3 Cranial nerves: Yes CN's II-XII intact bilaterally Cognition (Neuro): normal cognition Psych Appearance: grossly normal Mental Status: mental status grossly normal Speech and movement: Normal speech and movement present Affect: normal affect Attitude: cooperative Assessment & Plan Assessment & Plan (1) Migraine with aura: Code(s): G43.109 - Migraine with aura, not intractable, without status migrainosus Category: Medical Qualifiers: Intractability: not intractable Status migrainosus presence: without status migrainosus Qualified Code(s): G43.109 - Migraine with aura, not intractable, without status migrainosus (2) Photophobia: Code(s): H53.149 - Visual discomfort, unspecified Category: Medical (3) Vertigo: Code(s): R42 - Dizziness and giddiness Category: Medical Plan For migraine prevention tx: Continue regular physical activity, including both strength and conditioning exercises Continue amitriptyline 100 mg q.h.s. Continue propranolol LA 120 mg daily. Continue magnesium and riboflavin. Previous migraine prevention trials: topiramate, caused significant metallic oral sensation; Aimovig caused diffuse rash. Botox- ineffective after 3 tx's. Qulipta 30mg qhs- caused significant GI s/s. ? For migraine induced by air travel: Acetazolamide 125mg bid starting 1 day before flight and continuing x's 1-2 days after flight. ? For acute migraine tx: Continue Eletriptan 40mg prn. continue to send additional orders to [facility] pharmacy to supplement 9 tabs per month (allowed by his insurance) to 14 tabs per month. Hold Cyclobenzaprine 5-10mg qhs prn headache/bruxism- no longer using. May use Benadryl 25-50mg prn for rescue/sleep May continue HEAeye device prn. Previous migraine acute tx trials: Sumatriptan inj- lost efficacy. Sumatriptan 100mg- not as effective as eletriptan. Future considerations- DHE/Trudhessa, metoclopramide- for rescue. For vertigo: Increase fluids to 70-90 oz Meclizine 12.5mg prn. If worsens, consider decreasing the dose of amitriptyline and/or propranolol due to recent weight loss. Refer back to vestibular PT. ? f/u in 6 months or sooner prn. Medications: Changed From acetazolamide start 24 hrs prior to flying 125 mg PO BID 14 days PRN 28 tabs 0RF altitude sickness To acetazolamide start 24 hrs prior to flying 125 mg PO BID PRN 30 tabs 1RF altitude sickness 30 days From eletriptan (Relpax) take 1 tab at onset of headache; if no relief, may repeat 1 tab after at least 2 hrs; max = 2 tabs/24 hrs PO 30 days 30 tabs 6RF G43.109 - Migraine with aura, not intractable, without status migrainosus To eletriptan (Relpax) take 1 tab at onset of headache; if no relief, may repeat 1 tab after at least 2 hrs; max = 2 tabs/24 hrs PO 30 tabs 6RF 90 days G43.109 - Migraine with aura, not intractable, without status migrainosus From propranolol ER 120 mg PO DAILY 30 days 90 caps 3RF To propranolol ER 120 mg PO DAILY 90 caps 4RF 90 days From amitriptyline 100 mg PO BEDTIME 30 days 30 tabs 6RF To amitriptyline 100 mg PO BEDTIME 90 tabs 4RF 90 days Coding Level of Care Code Est Pt Level 4 (30528) Diagnoses Migraine with aura and without status migrainosus, not intractable G43.109 Intractability: not intractable Status migrainosus presence: without status migrainosus Photophobia H53.149 Vertigo R42
[2025-04-19 08:09] VITALS: BP 118/80; PULSE 55; O2SAT 99; BMI 25.9
== END 2025-04-19 09:08 | disposition home or self-care (01) ==
LOC: HO.HSMS 07:50
PROVIDERS: PCP Physician Assistant Medical; Visit Provider Nurse Practitioner Family
DX: G43.109 Migraine with aura, not intractable, without status migrainosus (principal); H53.149 Visual discomfort, unspecified; R42 Dizziness and giddiness
CPT/HCPCS: 99214